=== PATIENT | male | born 1970 | race African-American/Black ===

== ENCOUNTER 2016-09-04 08:29 | Emergency (ER) | payer SELFPAY ==
[2016-09-04 09:09] LABS: APPEARANCE,URINE CLEAR; BILIRUBIN,URINE NEGATIVE (NEGATIVE); GLUCOSE, URINE NEGATIVE (NEGATIVE); KETONES,URINE NEGATIVE (NEGATIVE); LEUKOCYTE ESTERASE,URINE NEGATIVE (NEGATIVE); NITRITE,URINE NEGATIVE (NEGATIVE); PROTEIN,URINE NEGATIVE (NEGATIVE); URINE SPECIFIC GRAVITY 1.028; UROBILINOGEN,URINE NEGATIVE mg/dL (<2.0)
--- NOTE | 2016-09-04 11:13 | ER Document Report ---
ED General - General Chief Complaint: Urinary Frequency Stated Complaint: BACK PAIN Mode of Arrival: Ambulatory Information source: Patient Notes: 46 yr old male with hx of kidney infection kidney stone presents with complaints of 2 wek duration of flank bilateral pain and increased urination. pt denies any fevers or chills, denies any blood in urine, or burning on urination . pt admits back feels better when he stretches TRAVEL OUTSIDE OF THE [place] IN LAST 30 DAYS: No - HPI Onset: Other - 2 week duration Onset/Duration: Persistent Quality of pain: Cramping Severity: Mild Pain Level: 1 Associated symptoms: Other Exacerbated by: Denies Relieved by: Denies Similar symptoms previously: Yes Recently seen / treated by doctor: Yes - Related Data Allergies/Adverse Reactions: No Known Allergies Allergy (Verified 09/04/16 08:32) Past Medical History - Social History Smoking Status: Never Smoker Cigarette use (# per day): No Chew tobacco use (# tins/day): No Smoking Education Provided: No Frequency of alcohol use: None Drug Abuse: None Family History: None Patient has suicidal ideation: No Patient has homicidal ideation: No Renal/ Medical History: Reports: Hx Kidney Stones. Denies: Hx Peritoneal Dialysis GI Medical History: Reports: Hx Gastroesophageal Reflux Disease - Immunizations Hx Diphtheria, Pertussis, Tetanus Vaccination: Yes Review of Systems - Review of Systems Notes: REVIEW OF SYSTEMS: CONSTITUTIONAL : Denies fever, chills, or sweats. Denies recent illness. EENT: Denies eye, ear, throat, or mouth pain or symptoms. Denies nasal or sinus congestion or discharge. Denies throat, tongue, or mouth swelling or difficulty swallowing. CARDIOVASCULAR: Denies chest pain. Denies palpitations or racing or irregular heart beat. Denies ankle edema. RESPIRATORY: Denies cough, cold, or chest congestion. Denies shortness of breath, difficulty breathing, or wheezing. GASTROINTESTINAL: Denies abdominal pain or distention. Denies nausea, vomiting , or diarrhea. Denies blood in vomitus, stools, or per rectum. Denies black, tarry stools. Denies constipation. GENITOURINARY: Admits to increased urination MUSCULOSKELETAL: Admits to bilateral flank pain SKIN: Denies rash, lesions or sores. HEMATOLOGIC : Denies easy bruising or bleeding. LYMPHATIC: Denies swollen, enlarged glands. NEUROLOGICAL: Denies confusion or altered mental status. Denies passing out or loss of consciousness. Denies dizziness or lightheadedness. Denies headache. Denies weakness or paralysis or loss of use of either side. Denies problems with gait or speech. Denies sensory loss, numbness, or tingling. Denies seizures. PSYCHIATRIC: Denies anxiety or stress. Denies depression, suicidal ideation, or homicidal ideation. ALL OTHER SYSTEMS REVIEWED AND NEGATIVE. Dictation was performed using [employer] voice recognition software PHYSICAL EXAMINATION: GENERAL: Well-appearing, well-nourished and in no acute distress. HEAD: Atraumatic, normocephalic. EYES: Pupils equal round and reactive to light, extraocular movements intact, sclera anicteric, conjunctiva are normal. ENT: Nares patent, oropharynx clear without exudates. Moist mucous membranes. NECK: Normal range of motion, supple without lymphadenopathy LUNGS: Breath sounds clear to auscultation bilaterally and equal. No wheezes rales or rhonchi. HEART: Regular rate and rhythm without murmurs ABDOMEN: Soft, nontender, nondistended abdomen. No guarding, no rebound. No masses appreciated. Musculoskeletal: Normal range of motion, no pitting or edema. No cyanosis. NEUROLOGICAL: Cranial nerves grossly intact. Normal speech, normal gait. Normal sensory, motor exams PSYCH: Normal mood, normal affect. SKIN: Warm, Dry, normal turgor, no rashes or lesions noted. Physical Exam - Vital signs Vitals: Temp Pulse Resp BP Pulse Ox 97.6 F 48 L 20 126/85 H 100 09/04/16 08:32 09/04/16 08:32 09/04/16 08:32 09/04/16 08:32 09/04/16 08:32 Course - Re-evaluation Re-evalutation: 09/04/16 11:[address] noted no acute abnormality, I'm unsure the patient's increased urinary cause, his glucose was within normal limits. I will have the patient follow-up with urology. After performing a Medical Screening Examination, I estimate there is LOW risk for ACUTE APPENDICITIS, BOWEL OBSTRUCTION, ACUTE CHOLECYSTITIS, PERFORATED DIVERTICULITIS, INCARCERATED HERNIA, PANCREATITIS, or PERFORATED ULCER, thus I consider the discharge disposition reasonable. Also, there is no evidence or peritonitis, sepsis, or toxicity. I have reevaluated this patient multiple times and no significant life threatening changes are noted. The patient and I have discussed the diagnosis and risks, and we agree with discharging home with close follow-up with the understanding that symptoms and presentations can change. We also discussed returning to the Emergency Department immediately if new or worsening symptoms occur. We have discussed the symptoms which are most concerning (e.g., bloody stool, fever, changing or worsening pain, intractable vomiting - standard verbal up date) that necessitate immediate return. - Vital Signs Vital signs: Temp Pulse Resp BP Pulse Ox 97.6 F 46 L 20 126/85 H 100 09/04/16 08:35 09/04/16 08:35 09/04/16 08:35 09/04/16 08:35 09/04/16 08:35 - Diagnostic Test Radiology reviewed: Image reviewed, Reports reviewed Discharge - Discharge Clinical Impression: Increased urinary frequency Back pain Qualifiers: Back pain location: low back pain Chronicity: acute Back pain laterality: bilateral Sciatica presence: without sciatica Qualified Code(s): M54.5 - Low back pain Condition: Stable Disposition: HOME, SELF-CARE Instructions: Flank Pain ([facility]) Prescriptions: Naproxen 500 mg PO BID #20 tablet Referrals: LAURA STONE MD [Primary Care Provider] - Follow up in 3-5 days BALWINDER WALKER MD [ACTIVE STAFF] - Follow up in 3-5 days
[2016-09-04 11:27] VITALS: BP 122/81
== END 2016-09-04 11:26 | disposition home or self-care (01) ==
LOC: ER 08:29
DX: R35.0 Frequency of micturition (principal); M54.5 Low back pain; R10.9 Unspecified abdominal pain; M54.9 Dorsalgia, unspecified
CPT/HCPCS: 76380; 81001; 82962; 87086; 99284

== ENCOUNTER 2016-10-10 21:09 | Emergency (ER) | payer SELFPAY ==
[2016-10-10] MEDS ORDERED: ASPIRIN 81 MG TABLET, CHEWABLE PO ONE (22:24)
[2016-10-10 22:43] LABS: ABSOLUTE BASOPHILS # (AUTO) 0.1 10^3/uL (0.0-0.2); ABSOLUTE EOSINOPHILS # (AUTO) 0.1 10^3/uL (0.0-0.6); ABSOLUTE LYMPHOCYTES (AUTO) 2.2 10^3/uL (0.5-4.7); ABSOLUTE MONOCYTES (AUTO) 0.6 10^3/uL (0.1-1.4); ABSOLUTE NEUT (AUTO) 4.5 10^3/uL (1.7-8.2); BASOPHILS % (AUTO) 0.8 % (0-2); HEMATOCRIT 46.1 % (37.9-51.0); HEMOGLOBIN 15.2 g/dL (13.5-17.0); HGB HCT DIFFERENCE -0.5; LYMPHOCYTES % (AUTO) 29.4 % (13-45); MEAN CORPUSCULAR HEMOGLOBIN 29.3 pg (27.0-33.4); MEAN CORPUSCULAR VOLUME 89 fl (80-97); MONOCYTES % (AUTO) 8.5 % (3-13); RED BLOOD COUNT 5.19 10^6/uL (4.35-5.55); RED CELL DISTRIBUTION WIDTH 13.8 % (11.5-14.0); SEGMENTED NEUTROPHILS % (AUTO) 60.3 % (42-78); WHITE BLOOD COUNT 7.5 10^3/uL (4.0-10.5)
[2016-10-10 22:56] LABS: ALANINE AMINOTRANSFERASE 26 U/L (21-72); ALBUMIN 4.2 g/dL (3.5-5.0); ALKALINE PHOSPHATASE 55 U/L (38-126); ANION GAP 12 (5-19); ASPARTATE AMINO TRANSFERASE 21 U/L (17-59); BILIRUBIN,DIRECT 0.3 mg/dL (0.0-0.4); BILIRUBIN,TOTAL 0.6 mg/dL (0.2-1.3); BLOOD UREA NITROGEN 15 mg/dL (7-20); CALCIUM 9.8 mg/dL (8.4-10.2); CARBON DIOXIDE 25 mmol/L (22-30); CHLORIDE 105 mmol/L (98-107); CREATINE KINASE 268 U/L (55-170); CREATININE RESULT 1.04 mg/dL (0.52-1.25); GLUCOSE 84 mg/dL (75-110); POTASSIUM 4.1 mmol/L (3.6-5.0); TOTAL PROTEIN 7.3 g/dL (6.3-8.2)
[2016-10-10 23:06] LABS: CREATINE KINASE MB 0.93 ng/mL (<4.55); TROPONIN I < 0.012 ng/mL
--- NOTE | 2016-10-10 23:09 | RADIOLOGY REPORT (SQ) ---
EXAM DESCRIPTION: CHEST SINGLE VIEW COMPLETED DATE/TIME: 10/10/2016 10:40 pm REASON FOR STUDY: chest pain COMPARISON: 04/16/2016 EXAM PARAMETERS: NUMBER OF VIEWS: One view. TECHNIQUE: Single frontal radiographic view of the chest acquired. RADIATION DOSE: NA LIMITATIONS: None. FINDINGS: LUNGS AND PLEURA: No acute opacities, masses or pneumothorax. No pleural effusion. MEDIASTINUM AND HILAR STRUCTURES: Stable. HEART AND VASCULAR STRUCTURES: Stable. BONES: No acute findings. HARDWARE: None in the chest. OTHER: No other significant finding. IMPRESSION: NO ACUTE RADIOGRAPHIC FINDING IN THE CHEST. TECHNICAL DOCUMENTATION: JOB ID: [id number]
[2016-10-11] MEDS ORDERED: METOCLOPRAMIDE HCL ORAL SOLN 10 MG/10 ML UDCUP PO ONE (00:37)
[2016-10-11] MEDS ORDERED: FAMOTIDINE 20 MG TABLET PO ONE (00:37)
[2016-10-11] MEDS ORDERED: LIDOCAINE 2% VISCOUS SOLN 20 ML UDCUP PO ONE (00:37)
[2016-10-11] MEDS ORDERED: MAG HYDROX/AL HYDROX/SIMETH SUSP 30 ML UDCUP PO ONE (00:37)
--- NOTE | 2016-10-11 01:17 | ER Document Report ---
ED General - General Chief Complaint: Chest Pain Stated Complaint: CHEST PAIN Time Seen by Provider: 10/11/16 00:03 Notes: Patient is a 46-year-old male without past medical history who presents with an episode of chest pain occurring approximately 4 hours prior to arrival. Patient states that he has been having worsening reflux symptoms over the last 2 days. States that he has had significant dietary indiscretions over the last 48 hours and believe this may be contributing to his symptoms. States that tonight he had an episode in which he developed mild epigastric discomfort and felt a burning, cramping sensation in his left chest. States he also some tingling in his left arm which he has had in the past with severe reflux. However he states that he decided to err on the side of caution come to the emergency department to be sure that he was not having a heart attack. He denies any associated nausea, vomiting, diaphoresis or shortness of breath. No history of DVT or pulmonary embolus. He denies any pain at time of my assessment. Nothing is been noted to improve or worsen his symptoms. He has no prior cardiac history. TRAVEL OUTSIDE OF THE [place] IN LAST 30 DAYS: No - Related Data Allergies/Adverse Reactions: No Known Allergies Allergy (Verified 09/04/16 08:32) Past Medical History - General Information source: Patient - Social History Smoking Status: Never Smoker Frequency of alcohol use: None Drug Abuse: None Lives with: Spouse/Significant other Family History: Reviewed & Not Pertinent Patient has suicidal ideation: No Patient has homicidal ideation: No Renal/ Medical History: Reports: Hx Kidney Stones. Denies: Hx Peritoneal Dialysis GI Medical History: Reports: Hx Gastroesophageal Reflux Disease - Immunizations Hx Diphtheria, Pertussis, Tetanus Vaccination: Yes Review of Systems - Review of Systems Notes: Constitutional: Negative for fever. HENT: Negative for sore throat. Eyes: Negative for visual changes. Cardiovascular: Positive for chest pain. Respiratory: Negative for shortness of breath. Gastrointestinal: Positive for epigastric discomfort Genitourinary: Negative for dysuria. Musculoskeletal: Negative for back pain. Skin: Negative for rash. Neurological: Negative for headaches, weakness or numbness. 10 point ROS negative except as marked above and in HPI. Physical Exam - Vital signs Vitals: Temp Pulse Resp BP Pulse Ox 98.1 F 53 L 17 126/88 H 100 10/10/16 22:20 10/10/16 22:20 10/10/16 22:20 10/10/16 22:20 10/10/16 22:20 Interpretation: Bradycardic Notes: PHYSICAL EXAMINATION: GENERAL: Well-appearing, well-nourished and in no acute distress. HEAD: Atraumatic, normocephalic. EYES: Pupils equal round and reactive to light, extraocular movements intact, sclera anicteric, conjunctiva are normal. ENT: nares patent, oropharynx clear without exudates. Moist mucous membranes. NECK: Normal range of motion, supple without lymphadenopathy LUNGS: Breath sounds clear to auscultation bilaterally and equal. No wheezes rales or rhonchi. HEART: Regular rate and rhythm without murmurs ABDOMEN: Soft, mild epigastric discomfort, normoactive bowel sounds. No guarding, no rebound. No masses appreciated. EXTREMITIES: Normal range of motion, no pitting or edema. No cyanosis. NEUROLOGICAL: No focal neurological deficits. Moves all extremities spontaneously and on command. PSYCH: Normal mood, normal affect. SKIN: Warm, Dry, normal turgor, no rashes or lesions noted. Course - Re-evaluation Re-evalutation: 10/11/16 01:12 Presentation of chest pain in an otherwise well appearing patient. Low clinical suspicion for ACS given clinical history, exam, EKG without ST elevations or depressions, and negative initial troponin. HEART score less than or equal to 3. PE also seems unlikely given clinical history, absence of tachycardia or dyspnea. Patient is PERC criteria negative. CXR without evidence of pneumothorax or pneumonia. No widened mediastinum. Aortic dissection also seems unlikely given history, symmetric pulses, CXR, and vitals. HEART Score: History:0 EC Age:1 Risk Factors:0 Troponin:0 Total: 1 10/11/16 01:54 Second troponin remains negative. Patient states his epigastric discomfort is now improved after a GI cocktail. Final assessment: Chest pain in a patient without evidence of cardiac or other serious etiology on workup today. I discussed with patient that, based on their age, risk factors and emergency department testing today, the likelihood that their symptoms are related to a heart attack is very low (estimated risk of heart attack or over the next 30 days of less than 1%). The patient demonstrates decision making capacity and has verbalized an understanding of these risks to me. Based on this, the patient has chosen to follow-up as an outpatient. Usual chest pain return precautions reviewed. The patient states understanding and agreement with this plan. - Vital Signs Vital signs: Temp Pulse Resp BP Pulse Ox 98.1 F 53 L 21 H 102/72 100 10/10/16 22:20 10/10/16 22:20 10/11/16 01:00 10/11/16 01:01 10/11/16 01:01 - Laboratory Result Diagrams: 10/10/16 22:31 10/10/16 22:31 Laboratory results interpreted by me: 10/10/16 22:31 Creatine Kinase 268 H - Diagnostic Test Radiology reviewed: Image reviewed, Reports reviewed Radiology results interpreted by me: 10/11/16 01:13 Chest x-ray: No acute pneumothorax or infiltrate - EKG Interpretation by Me Additional EKG results interpreted by me: 10/11/16 01:13 Normal sinus rhythm. Rate 71. No ST elevations or depressions. QTC is 426. Discharge - Discharge Clinical Impression: Abdominal discomfort, epigastric Chest pain Qualifiers: Chest pain type: unspecified Qualified Code(s): R07.9 - Chest pain, unspecified Condition: Good Disposition: HOME, SELF-CARE Additional Instructions: You were seen today for chest pain. The exact cause of your pain is unclear. However, based on your cardiac enzyme testing, chest x-ray, and EKG it does not appear that it is from an immediately life-threatening cause at this time. Although your testing here is normal is critical that you follow-up with your primary care physician for continued evaluation of this chest pain. Begin taking famotidine 20 mg twice daily and avoid foods that may trigger symptoms. Please return to emergency department immediately if you have worsening of your chest pain, shortness of breath, vomiting, become unable to exert yourself due to pain or difficulty breathing, you pass out, or have any pain that radiates into your arms, jaw, or back. Please also return if you have any additional symptoms that are concerning to you.
[2016-10-11 02:06] VITALS: BP 118/75
--- NOTE | 2016-10-11 08:23 | EKG REPORT ---
SEVERITY:- NORMAL ECG - SINUS RHYTHM : Confirmed by: Isai Leal MD 11-Oct-2016 08:22:51
== END 2016-10-11 02:06 | disposition home or self-care (01) ==
LOC: ER 21:09
DX: R07.9 Chest pain, unspecified (principal); R19.8 Other specified symptoms and signs involving the digestive system and abdomen; R20.2 Paresthesia of skin; R00.1 Bradycardia, unspecified; Z87.19 Personal history of other diseases of the digestive system; Z87.442 Personal history of urinary calculi
CPT/HCPCS: 93005; 99285; 36415; 82553; 82550; 85025; 80053; 84484; 71010; 93010; J3490

== ENCOUNTER 2017-09-30 20:23 | Emergency (ER) | payer SELFPAY ==
[2017-09-30 20:31] VITALS: BP 119/78
--- NOTE | 2017-09-30 22:28 | ER Document Report ---
ED Skin Rash/Insect Bite/Abscs - General Chief Complaint: Insect Bite Stated Complaint: POSSIBLE INSECT BITE Time Seen by Provider: 09/30/17 22:16 Mode of Arrival: Ambulatory Information source: Patient Notes: 47-year-old male presents to ED for complaint of insect bites to the left abdomen left thigh and left calf since Friday and Friday. Patient states he has had pain in these areas. She states he was on his way from [place] to [place] and he was standing a motel when this happened. He has no fever no inflammation just bug bites in these 3 areas. He is alert oriented respirations even and unlabored able to walk with a even steady gait. TRAVEL OUTSIDE OF THE [place] IN LAST 30 DAYS: No - HPI Patient complains to provider of: Insect sting Onset: Other - Friday and Friday Onset/Duration: Gradual Quality of pain: Burning Severity: Mild Pain Level: 2 Skin Character: Other - 3 small insect bites with no cellulitis Quality of rash: Itchy, Painful Identify cause: Yes Exacerbated by: Denies Relieved by: Denies Similar symptoms previously: Yes Recently seen / treated by doctor: No - Related Data Allergies/Adverse Reactions: No Known Allergies Allergy (Verified 09/04/16 08:32) Past Medical History - General Information source: Patient - Social History Smoking Status: Never Smoker Cigarette use (# per day): No Chew tobacco use (# tins/day): No Smoking Education Provided: No Frequency of alcohol use: None Drug Abuse: None Lives with: Alone Family History: Reviewed & Not Pertinent Patient has suicidal ideation: No Patient has homicidal ideation: No - Past Medical History Cardiac Medical History: Reports: None Pulmonary Medical History: Reports: None EENT Medical History: Reports: None Neurological Medical History: Reports: None Endocrine Medical History: Reports: None Renal/ Medical History: Reports: Hx Kidney Stones Malignancy Medical History: Reports None GI Medical History: Reports: Hx Gastroesophageal Reflux Disease Musculoskeltal Medical History: Reports None Skin Medical History: Reports None Psychiatric Medical History: Reports: None Traumatic Medical History: Reports: None Infectious Medical History: Reports: None Surgical Hx: Negative - Immunizations Immunizations up to date: Yes Hx Diphtheria, Pertussis, Tetanus Vaccination: Yes Review of Systems - Review of Systems Constitutional: No symptoms reported EENT: No symptoms reported Cardiovascular: No symptoms reported Respiratory: No symptoms reported Gastrointestinal: No symptoms reported Genitourinary: No symptoms reported Male Genitourinary: No symptoms reported Musculoskeletal: No symptoms reported Skin: Other - Small noninflamed insect bite to the left abdomen left thigh and left calf no redness no cellulitis Hematologic/Lymphatic: No symptoms reported Neurological/Psychological: No symptoms reported Physical Exam - Vital signs Vitals: Temp Pulse Resp BP Pulse Ox 97.6 F 48 L 16 119/78 98 09/30/17 20:30 09/30/17 20:30 09/30/17 20:30 09/30/17 20:30 09/30/17 20:30 Interpretation: Normal - General General appearance: Appears well, Alert - HEENT Head: Normocephalic, Atraumatic Eyes: Normal Pupils: PERRL - Respiratory Respiratory status: No respiratory distress Chest status: Nontender Breath sounds: Normal Chest palpation: Normal - Cardiovascular Rhythm: Regular Heart sounds: Normal auscultation Murmur: No - Abdominal Inspection: Normal Distension: No distension Bowel sounds: Normal Tenderness: Nontender Organomegaly: No organomegaly - Back Back: Normal, Nontender - Extremities General upper extremity: Normal inspection, Nontender, Normal color, Normal ROM , Normal temperature General lower extremity: Normal inspection, Nontender, Normal color, Normal ROM , Normal temperature, Normal weight bearing. No: Eligio's sign - Neurological Neuro grossly intact: Yes Cognition: Normal Orientation: AAOx4 [place] Coma Scale Eye Opening: Spontaneous Govind Coma Scale Verbal: Oriented Govind Coma Scale Motor: Obeys Commands Govind Coma Scale Total: 15 Speech: Normal Motor strength normal: LUE, RUE, LLE, RLE Sensory: Normal - Psychological Associated symptoms: Normal affect, Normal mood - Skin Skin Temperature: Warm Skin Moisture: Dry Skin Color: Normal Location of irregularity: Other - 3 small insect bites to the left abdomen left thigh and left calf. No cellulitis no inflammation Character of irregularity: negative: Erythematous Irregularity with: negative: Swelling, Tenderness Course - Re-evaluation Re-evalutation: 10/01/17 00:55 This patient was given instructions on care of been insect bite. There is no signs of infection no signs of inflammation no swelling. Patient was opted to return to the ED if he develops any redness infection or inflammation or fevers. Patient instructed not to scratch these insect bites but to clean well with soap and water and to apply ice if it itched but do not scratch the areas. - Vital Signs Vital signs: Temp Pulse Resp BP Pulse Ox 97.6 F 48 L 16 119/78 98 09/30/17 20:30 09/30/17 20:30 09/30/17 20:30 09/30/17 20:30 09/30/17 20:30 Discharge - Discharge Clinical Impression: Insect bite Qualifiers: Encounter type: initial encounter Qualified Code(s): W57.XXXA - Bitten or stung by nonvenomous insect and other nonvenomous arthropods, initial encounter Condition: Stable Disposition: HOME, SELF-CARE Additional Instructions: Insect Bites You have been bitten by an insect. These bites can cause two types of swelling: an initial swelling due to insect saliva or injected poison, and a late reaction due to your body's allergic reaction. This initial local reaction may be uncomfortable but is not dangerous. Often there's an itchy "hive" at the bite location. This is treated with antihistamines, cold compresses, and resting the affected body part. The later reaction often develops about the second day. The entire area becomes very swollen, red, itchy, and tender. This is an allergic reaction. Your body is attacking the leftover insect saliva or venom. This type of allergy is unpleasant, but not dangerous. We treat this swelling with cortisone -type medicine. Sometimes we use antibiotics if we're worried about infection. Antihistamines help with the itch. If you develop a fever, chills, a red streak, or swollen glands in the area of the bite, infection may be starting. Return at once. Acetaminophen Acetaminophen may be taken for pain relief or fever control. It's much safer than aspirin, offering a wider range of "safe" dosages. It is safe during . Some brand names are Tylenol, Panadol, Datril, Anacin 3, Tempra, and Liquiprin. Acetaminophen can be repeated every four hours. The following are maximum recommended dosages: WEIGHT Dose Drops Elixir Chewable( 80mg) (LBS.) drprs=droppers tsp=teaspoon 6 40 mg .4 ml (1/2) 6-11 80 mg .8 ml (full) 1/2 tsp 1 tab 12-16 120 mg 1 1/2 drprs 3/4 tsp 1 1/2 tabs 17-23 160 mg 2 drprs 1 tsp 2 tabs 24-30 240 mg 3 drprs 1 1/2 tsp 3 tabs 30-35 320 mg 2 tsp 4 tabs 36-41 360 mg 2 1/4 tsp 4 1 /2 tabs 42-47 400 mg 2 1/2 tsp 5 tabs 48-53 480 mg 3 tsp 6 tabs 54-59 520 mg 3 1/4 tsp 6 1 /2 tabs 60-64 560 mg 3 1/2 tsp 7 tabs 65-70 600 mg 3 3/4 tsp 7 1 /2 tabs 71-76 640 mg 4 tsp 8 tabs 77-82 720 mg 4 1/2 tsp 9 tabs 83-88 800 mg 5 tsp 10 tabs >89 pounds or adults 650 mg to 900 mg Acetaminophen can be repeated every four hours. Maximum daily dose not to exceed 4000 mg. These maximum recommended dosages are slightly higher than the dosages written on the product container, but these dosages are very safe and well below the toxic dosage for acetaminophen. Ibuprofen Ibuprofen is an excellent, safe drug for pain control. In addition, it has potent antiinflammatory effects which are beneficial, especially in the treatment of injuries, arthritis, or tendonitis. It's best to take ibuprofen with food. Persons with ulcer disease or allergy to aspirin should notify their physician of this before taking ibuprofen. Take the medication exactly as prescribed. Don't take additional doses unless instructed to do so by your doctor. If you develop wheezing, shortness of breath, hives, faintness, stomach pain, vomiting, or dark black stools, return for re-evaluation at once. Pain the areas with some soap and water dab with alcohol and take Benadryl as needed for itching. Please do not scratch the areas as this can cause infection. The sites are not infected at this time. FOLLOW-UP CARE: If you have been referred to a physician for follow-up care, call the physician s office for an appointment as you were instructed or within the next two days. If you experience worsening or a significant change in your symptoms, notify the physician immediately or return to the Emergency Department at any time for re-evaluation. Referrals: LAURA STONE MD [Primary Care Provider] - Follow up as needed
== END 2017-09-30 22:39 | disposition home or self-care (01) ==
LOC: ER 20:23
DX: S30.861A Insect bite (nonvenomous) of abdominal wall, initial encounter (principal); S70.362A Insect bite (nonvenomous), left thigh, initial encounter; S80.862A Insect bite (nonvenomous), left lower leg, initial encounter; W57.XXXA Bitten or stung by nonvenomous insect and other nonvenomous arthropods, initial encounter; Z87.442 Personal history of urinary calculi
CPT/HCPCS: 99281

== ENCOUNTER 2017-12-16 21:14 | Observation (INO) | payer SELFPAY ==
--- NOTE | 2017-12-16 22:17 | EKG REPORT ---
SEVERITY:- NORMAL ECG - SINUS RHYTHM : Confirmed by: Carmen Healy 16-Dec-2017 22:16:37
[2017-12-16] MEDS ORDERED: ASPIRIN 81 MG TABLET, CHEWABLE PO ONE (22:42)
--- NOTE | 2017-12-16 22:44 | ER Document Report ---
ED Cardiac - General Chief Complaint: Chest Pain Stated Complaint: CHEST PAIN Time Seen by Provider: 12/16/17 22:35 Notes: Patient is a 47-year-old male who comes emergency room for chief complaint of chest pain. He states that at 1:30 PM he had an episode that lasted for a few minutes where he broke out into a sweat, he felt a little bit lightheaded, he felt discomfort in the center of his chest, and he felt a little bit short of breath. He states this lasted for several minutes and then resolved. He states it happened again but not as bad later in the evening. He states yesterday he had the sensation of a "bubble" in the chest and he took Zantac a couple times. He took Zantac again today without any change. He denies smoking , alcohol, recreational drugs, he denies any diagnosed medical history other than bradycardia, he denies any first-degree family members with history of [place]. TRAVEL OUTSIDE OF THE [place] IN LAST 30 DAYS: No - Related Data Allergies/Adverse Reactions: No Known Allergies Allergy (Verified 09/04/16 08:32) Past Medical History - General Information source: Patient - Social History Smoking Status: Never Smoker Frequency of alcohol use: None Drug Abuse: None Lives with: Alone Family History: Reviewed & Not Pertinent Renal/ Medical History: Reports: Hx Kidney Stones. Denies: Hx Peritoneal Dialysis GI Medical History: Reports: Hx Gastroesophageal Reflux Disease Surgical Hx: Negative - Immunizations Immunizations up to date: Yes Hx Diphtheria, Pertussis, Tetanus Vaccination: Yes Review of Systems - Review of Systems Constitutional: No symptoms reported EENT: No symptoms reported Cardiovascular: See HPI Respiratory: No symptoms reported Gastrointestinal: No symptoms reported Genitourinary: No symptoms reported Male Genitourinary: No symptoms reported Musculoskeletal: No symptoms reported Skin: No symptoms reported Hematologic/Lymphatic: No symptoms reported Neurological/Psychological: No symptoms reported Physical Exam - Vital signs Vitals: Temp Pulse Resp BP Pulse Ox 98.1 F 44 L 16 115/79 100 12/16/17 22:22 12/16/17 22:22 12/16/17 22:22 12/16/17 22:22 12/16/17 22:22 - Notes Notes: GENERAL: Alert, interacts well. No acute distress. HEAD: Normocephalic, atraumatic. EYES: Pupils equal, round, and reactive to light. Extraocular movements intact. ENT: Oral mucosa moist, tongue midline. NECK: Full range of motion. Supple. Trachea midline. LUNGS: Clear to auscultation bilaterally, no wheezes, rales, or rhonchi. No respiratory distress. HEART: Bradycardia with normal rhythm. No murmur. ABDOMEN: Soft, non-tender. Non-distended. Bowel sounds present in all 4 quadrants. EXTREMITIES: Moves all 4 extremities spontaneously. No edema, normal radial and dorsalis pedis pulses bilaterally. No cyanosis. BACK: no cervical, thoracic, lumbar midline tenderness. No saddle anesthesia, normal distal neurovascular exam. NEUROLOGICAL: Alert and oriented x3. Normal speech. [cranial nerves II through XII grossly intact]. PSYCH: Normal affect, normal mood. SKIN: Warm, dry, normal turgor. No rashes or lesions noted. Course - Re-evaluation Re-evalutation: Patient chest pain-free on my evaluation. He does not take any medications, does not smoke, denies recreational drugs. He is bradycardic but he tells me he has had this diagnosis before. EKG shows sinus bradycardia with no T-wave inversions or ST segment changes in consecutive leads. CBC, chemistry unremarkable, troponin initially is negative. Chest x-ray unremarkable. Discussed with patient. He has been seen here for chest pain several times in the past but has never had a follow-up stress test performed. His symptoms are actually very concerning including diaphoresis, nausea, and pressure in the chest which resolved, symptoms started while he was working. He has a low heart score but because of his repeated follow-up failure, concerning symptoms, I discussed with patient different options, preference is to stay and have full cardiac workup performed. Will discuss with his provider. 12/17/17 00:[address] Loaiza. Patient will be admitted to telemetry observation with plans for a stress test. Patient states understanding and agreement with this plan. - Vital Signs Vital signs: Temp Pulse Resp BP Pulse Ox 97.8 F 47 L 20 114/69 100 12/17/17 02:45 12/17/17 02:45 12/17/17 02:45 12/17/17 02:45 12/17/17 02:45 - Laboratory Result Diagrams: 12/16/17 23:00 12/16/17 23:00 Laboratory results interpreted by me: 12/16/17 23:00 RDW 14.2 H Discharge - Discharge Clinical Impression: Bradycardia Chest pain Qualifiers: Chest pain type: unspecified Qualified Code(s): R07.9 - Chest pain, unspecified Condition: Stable Disposition: ADMITTED OBSERVATION Admitting Provider: [facility] Admitted: Telemetry
--- NOTE | 2017-12-16 23:15 | RADIOLOGY REPORT (SQ) ---
EXAM DESCRIPTION: XR CHEST 1 VIEW COMPLETED DATE/TME: 12/16/2017 22:42 CLINICAL HISTORY: 47 years, Male, chest pain COMPARISON: 10/10/2016 NUMBER OF VIEWS: One TECHNIQUE: Single AP view of the chest was obtained portably. LIMITATIONS: None. FINDINGS: Cardiac mediastinal silhouette within normal limits of size stable in comparison to the previous examination. Slightly tortuous thoracic aorta. Low lung volumes grossly clear without discrete focal opacity, pleural effusion or pneumothorax. IMPRESSION: No acute cardiopulmonary abnormalities. 2010 [employer]- All Rights Reserved
[2017-12-16 23:30] LABS: ABSOLUTE EOSINOPHILS # (AUTO) 0.1 10^3/uL (0.0-0.6); ABSOLUTE MONOCYTES (AUTO) 0.6 10^3/uL (0.1-1.4); ABSOLUTE NEUT (AUTO) 3.4 10^3/uL (1.7-8.2); BASOPHILS % (AUTO) 0.5 % (0-2); EOSINOPHILS % (AUTO) 1.2 % (0-6); HEMATOCRIT 43.3 % (37.9-51.0); HEMOGLOBIN 14.5 g/dL (13.5-17.0); LYMPHOCYTES % (AUTO) 32.5 % (13-45); MEAN CORPUSCULAR HEMOGLOBIN 29.9 pg (27.0-33.4); MEAN CORPUSCULAR HGB CONC 33.4 g/dL (32.0-36.0); MEAN CORPUSCULAR VOLUME 89 fl (80-97); MONOCYTES % (AUTO) 10.1 % (3-13); PLATELET COUNT 270 10^3/uL (150-450); RED BLOOD COUNT 4.85 10^6/uL (4.35-5.55); RED CELL DISTRIBUTION WIDTH 14.2 % (11.5-14.0); SEGMENTED NEUTROPHILS % (AUTO) 55.7 % (42-78); TOTAL CELLS COUNTED % (AUTO) 100 %; WHITE BLOOD COUNT 6.1 10^3/uL (4.0-10.5)
[2017-12-16 23:41] LABS: ALANINE AMINOTRANSFERASE 24 U/L (21-72); ALBUMIN 4.1 g/dL (3.5-5.0); ALKALINE PHOSPHATASE 48 U/L (38-126); ANION GAP 11 (5-19); ASPARTATE AMINO TRANSFERASE 17 U/L (17-59); BILIRUBIN,DIRECT 0.2 mg/dL (0.0-0.4); BILIRUBIN,TOTAL 0.6 mg/dL (0.2-1.3); BLOOD UREA NITROGEN 13 mg/dL (7-20); CALCIUM 9.3 mg/dL (8.4-10.2); CARBON DIOXIDE 26 mmol/L (22-30); CHLORIDE 104 mmol/L (98-107); CREATINE KINASE 144 U/L (55-170); GLUCOSE 86 mg/dL (75-110); POTASSIUM 4.3 mmol/L (3.6-5.0); TOTAL PROTEIN 7.2 g/dL (6.3-8.2)
[2017-12-16 23:52] LABS: CREATINE KINASE MB 0.55 ng/mL (<4.55)
[2017-12-16 23:55] LABS: TROPONIN I < 0.012 ng/mL
[2017-12-17 06:24] LABS: CREATINE KINASE MB 0.41 ng/mL (<4.55)
[2017-12-17 06:35] LABS: TROPONIN I < 0.012 ng/mL
[2017-12-17] MEDS ORDERED: LIDOCAINE 2% VISCOUS SOLN 20 ML UDCUP PO ONE (11:00)
[2017-12-17] MEDS ORDERED: MAG HYDROX/AL HYDROX/SIMETH SUSP 30 ML UDCUP PO ONE (11:00)
[2017-12-17] MEDS ORDERED: METOCLOPRAMIDE HCL ORAL SOLN 10 MG/10 ML UDCUP PO ONE (11:00)
[2017-12-17] MEDS ORDERED: LANSOPRAZOLE 30 MG TAB.RAP.DR PO ONE (11:30)
[2017-12-17 11:43] LABS: CREATINE KINASE MB 0.38 ng/mL (<4.55)
[2017-12-17 11:49] LABS: TROPONIN I < 0.012 ng/mL
[2017-12-17] MEDS: ASPIRIN 81 MG TABLET, ENT COATED PO SCH (11:57)
[2017-12-17] MEDS ORDERED: REGADENOSON INJ 0.4 MG/5 ML DISP.SYRIN IV ONE (12:30)
--- NOTE | 2017-12-17 17:46 | PDOC H&P ---
History of Present Illness Admission Date/PCP: 12/17/17 00:36 LAURA STONE MD History of Present Illness: J OANN COTO is a 47 year old male, He came to the emergency room for evaluation of chest pain, the chest pain is atypical Past Medical History Cardiac Medical History: Reports: Hypertension GI Medical History: Reports: Gastroesophageal Reflux Disease Social History Lives with: Alone Smoking Status: Never Smoker Frequency of Alcohol Use: None Hx Recreational Drug Use: No Drugs: None Hx Prescription Drug Abuse: No - Advance Directive Resuscitation Status: Full Code Family History Family History: Reviewed & Not Pertinent Parental Family History Reviewed: Yes Children Family History Reviewed: Yes Sibling(s) Family History Reviewed.: Yes Medication/Allergy Home Medications: Ranitidine HCl [Zantac 150 mg Tablet] 150 mg PO BID PRN 09/21/12 Allergies/Adverse Reactions: No Known Allergies Allergy (Verified 09/04/16 08:32) Review of Systems Constitutional: ABSENT: chills, fever(s), headache(s), weight gain, weight loss Eyes: ABSENT: visual disturbances Ears: ABSENT: hearing changes Cardiovascular: PRESENT: chest pain. ABSENT: dyspnea on exertion, edema, orthropnea, palpitations Respiratory: ABSENT: cough, hemoptysis Gastrointestinal: ABSENT: abdominal pain, constipation, diarrhea, hematemesis, hematochezia, nausea, vomiting Genitourinary: ABSENT: dysuria, hematuria Musculoskeletal: ABSENT: joint swelling Integumentary: ABSENT: rash, wounds Neurological: ABSENT: abnormal gait, abnormal speech, confusion, dizziness, focal weakness, syncope Psychiatric: ABSENT: anxiety, depression, homidical ideation, suicidal ideation Endocrine: ABSENT: cold intolerance, heat intolerance, menstrual abnormalities, polydipsia, polyuria Hematologic/Lymphatic: ABSENT: easy bleeding, easy bruising, lymphadenopathy Physical Exam Vital Signs: Temp Pulse Resp BP Pulse Ox 98.6 F 52 L 16 103/62 100 12/17/17 14:57 12/17/17 15:00 12/17/17 14:57 12/17/17 14:57 12/17/17 14:57 Intake & Output 12/16/17 12/17/17 12/18/17 06:59 06:59 06:59 Intake Total 815 Balance 815 Weight 83.3 kg General appearance: PRESENT: no acute distress, well-developed, well-nourished Head exam: PRESENT: atraumatic, normocephalic Eye exam: PRESENT: conjunctiva pink, EOMI, PERRLA Ear exam: PRESENT: normal external ear exam Mouth exam: PRESENT: moist, tongue midline Neck exam: PRESENT: full ROM Respiratory exam: PRESENT: clear to auscultation sowmya Cardiovascular exam: PRESENT: RRR, +S1, +S2 Pulses: PRESENT: normal dorsalis pedis pul, +2 pedal pulses bilateral Vascular exam: PRESENT: normal capillary refill GI/Abdominal exam: PRESENT: normal bowel sounds, soft Rectal exam: PRESENT: deferred Neurological exam: PRESENT: alert, awake, oriented to person, oriented to place , oriented to time, oriented to situation, CN II-XII grossly intact Psychiatric exam: PRESENT: appropriate affect, normal mood Skin exam: PRESENT: dry, intact, warm Results Laboratory Results: 12/17/17 12/17/17 04:59 11:07 CK-MB (CK-2) 0.41 0.38 Troponin I < 0.012 < 0.012 Impressions: Chest X-Ray 12/16/17 22:42 IMPRESSION: No acute cardiopulmonary abnormalities. 2010 [employer]- All Rights Reserved Assessment & Plan - Diagnosis (1) Chest pain Qualifiers: Chest pain type: unspecified Qualified Code(s): R07.9 - Chest pain, unspecified Is this a current diagnosis for this admission?: Yes
[2017-12-17 18:47] LABS: CREATINE KINASE MB 0.29 ng/mL (<4.55); TROPONIN I < 0.012 ng/mL
[2017-12-18] MEDS ORDERED: LANSOPRAZOLE 30 MG TAB.RAP.DR PO SCH (06:00)
[2017-12-18 07:01] LABS: ABSOLUTE EOSINOPHILS # (AUTO) 0.1 10^3/uL (0.0-0.6); ABSOLUTE LYMPHOCYTES (AUTO) 1.4 10^3/uL (0.5-4.7); ABSOLUTE MONOCYTES (AUTO) 0.7 10^3/uL (0.1-1.4); BASOPHILS % (AUTO) 0.5 % (0-2); EOSINOPHILS % (AUTO) 1.3 % (0-6); HEMATOCRIT 45.3 % (37.9-51.0); HEMOGLOBIN 15.3 g/dL (13.5-17.0); LYMPHOCYTES % (AUTO) 26.5 % (13-45); MEAN CORPUSCULAR HGB CONC 33.8 g/dL (32.0-36.0); MEAN CORPUSCULAR VOLUME 89 fl (80-97); MONOCYTES % (AUTO) 13.3 % (3-13); PLATELET COUNT 241 10^3/uL (150-450); RED BLOOD COUNT 5.11 10^6/uL (4.35-5.55); RED CELL DISTRIBUTION WIDTH 13.9 % (11.5-14.0); SEGMENTED NEUTROPHILS % (AUTO) 58.4 % (42-78); TOTAL CELLS COUNTED % (AUTO) 100 %; WHITE BLOOD COUNT 5.1 10^3/uL (4.0-10.5)
[2017-12-18 07:21] LABS: ANION GAP 9 (5-19); BLOOD UREA NITROGEN 11 mg/dL (7-20); CALCIUM 9.2 mg/dL (8.4-10.2); CARBON DIOXIDE 25 mmol/L (22-30); CHLORIDE 105 mmol/L (98-107); CHOLESTEROL 190.12 mg/dL (0-200); GLUCOSE 92 mg/dL (75-110); POTASSIUM 4.3 mmol/L (3.6-5.0); SODIUM 139.3 mmol/L (137-145); TRIGLYCERIDES 79 mg/dL (<150)
[2017-12-18 07:32] LABS: DIRECT LDL 110 mg/dL (<100)
[2017-12-18] MEDS: ASPIRIN 81 MG TABLET, ENT COATED PO SCH (12:08)
--- NOTE | 2017-12-18 17:26 | PDOC DISCHARGE SUMMARY ---
General - Admit/Disc Date/PCP Admission Date/Primary Care Provider: 12/17/17 00:36 LAURA STONE MD Discharge Date: 12/18/17 - Discharge Diagnosis (1) Chest pain Is this a current diagnosis for this admission?: Yes - Additional Information Resuscitation Status: Full Code Discharge Activity: Activity As Tolerated, Balance Activity w/Rest Home Medications: Ranitidine HCl [Zantac 150 mg Tablet] 150 mg PO BID PRN 09/21/12 History of Present Illness History of Present Illness: JO ANN COTO is a 47 year old male, He came to the emergency room for evaluation of chest pain, the chest pain is atypical Hospital Course Hospital Course: Patient was admitted for the management of chest pain, the chest pain is atypical, he rule out for [place]. A Cardiolite Lexiscan stress test was done this was normal Physical Exam Vital Signs: Temp Pulse Resp BP Pulse Ox 98.6 F 59 L 16 114/69 100 12/18/17 16:45 12/18/17 16:45 12/18/17 16:45 12/18/17 16:45 12/18/17 16:45 Intake & Output 12/17/17 12/18/17 12/19/17 06:59 06:59 06:59 Intake Total 1051 677 Balance 1051 677 Weight 83.3 kg 82 kg General appearance: PRESENT: no acute distress, well-developed, well-nourished Head exam: PRESENT: atraumatic, normocephalic Eye exam: PRESENT: conjunctiva pink, EOMI, PERRLA Ear exam: PRESENT: normal external ear exam Mouth exam: PRESENT: moist, tongue midline Neck exam: PRESENT: full ROM Respiratory exam: PRESENT: clear to auscultation sowmya Cardiovascular exam: PRESENT: RRR, +S1, +S2 Pulses: PRESENT: normal dorsalis pedis pul, +2 pedal pulses bilateral Vascular exam: PRESENT: normal capillary refill GI/Abdominal exam: PRESENT: normal bowel sounds, soft Rectal exam: PRESENT: deferred Neurological exam: PRESENT: alert, awake, oriented to person, oriented to place , oriented to time, oriented to situation, CN II-XII grossly intact Psychiatric exam: PRESENT: appropriate affect, normal mood Skin exam: PRESENT: dry, intact, warm Results Laboratory Results: 12/18/17 06:27 12/18/17 06:27 12/18/17 12/18/17 06:27 06:27 WBC 5.1 RBC 5.11 Hgb 15.3 Hct 45.3 MCV 89 MCH 30.0 MCHC 33.8 RDW 13.9 Plt Count 241 Seg Neutrophils % 58.4 Lymphocytes % 26.5 Monocytes % 13.3 H Eosinophils % 1.3 Basophils % 0.5 Absolute Neutrophils 3.0 Absolute Lymphocytes 1.4 Absolute Monocytes 0.7 Absolute Eosinophils 0.1 Absolute Basophils 0.0 Sodium 139.3 Potassium 4.3 Chloride 105 Carbon Dioxide 25 Anion Gap 9 BUN 11 Creatinine 0.87 Est GFR ( Amer) > 60 Est GFR (Non-Af Amer) > 60 Glucose 92 Calcium 9.2 Triglycerides 79 Cholesterol 190.12 LDL Cholesterol Direct 110 H VLDL Cholesterol 16.0 HDL Cholesterol 45 12/17/17 12/17/17 12/17/17 04:59 11:07 18:10 CK-MB (CK-2) 0.41 0.38 0.29 Troponin I < 0.012 < 0.012 < 0.012 Impressions: Chest X-Ray 12/16/17 22:42 IMPRESSION: No acute cardiopulmonary abnormalities. 2010 [employer]- All Rights Reserved Qualifiers - * PATIENT BEING DISCHARGED WITH ANY OF THE FOLLOWING DIAGNOSIS: No
[2017-12-18 17:44] VITALS: BP 118/76
--- NOTE | 2017-12-24 00:11 | DRAGON STRESS TEST REPORT ---
Intravenous Lexiscan Cardiolite stress test using single photon emmision computerized tomography. Date of procedure: 12/18/2017. Ordering Provider: Dr. Loaiza. Patient's status: In Patient. Indication: Chest pain. Coronary risk factors: Age. Resting EKG: Sinus Rhythm. Poor R-wave progression leads V1 to V6. Stress EKG: No changes of ischemia. The patient no chest pain or discomfort, and there were no arrhythmias. Reason for termination: Protocol. Conclusions: Normal EKG and hemodynamic response to IV Lexiscan. Nuclear data: At rest the patient was given 12.44 millicuries of technetium 99m sestamibi injected intravenously. As per protocol rest non gated SPECT images were obtained. Subsequently the patient was given intravenous Lexiscan at a dose of 0.4 mg in 5 mL intravenously, followed by flush with normal saline. Subsequently the stress dose of 36.8 millicuries of technetium 99m sestamibi was injected intravenously. As per protocol stress gated images were obtained. Nuclear interpretation: Review of images showed that all segments of the myocardium had normal perfusion at rest, and normal perfusion post stress with IV Lexiscan. All segments of the myocardium had normal motion, contraction, and thickening by gated study. T. I D. ratio was normal at 0.85. Computer read rest, and stress left ventricular ejection fraction were 52 %, and 54 %, respectively. Visually both the stress and rest ejection fractions were normal, and greater than 55%. Conclusion: 1. There is no scintigraphic evidence of Lexiscan induced myocardial ischemia. 2. There is no scintigraphic evidence of myocardial infarction/scar. Recommendations: Aggressive risk factor modification, and treating the underlying co- morbidities. MTDD
== END 2017-12-18 18:28 | disposition home or self-care (01) ==
LOC: ER 21:14 → EH 12-17 00:36 → 5 12-17 02:04 → 3S 12-17 02:41
PROVIDERS: ADMIT Internal Medicine; ATTEND Internal Medicine
DX: R07.89 Other chest pain (principal); K21.9 Gastro-esophageal reflux disease without esophagitis; R42 Dizziness and giddiness; R61 Generalized hyperhidrosis; R06.02 Shortness of breath; R00.1 Bradycardia, unspecified
CPT/HCPCS: 93005; 99285; 36415 ×3; 82553 ×2; 82550; 85025 ×2; 80048; 80053; 84484 ×2; 80061; 93017; 71045; 78452; 93010; G0378 ×2; A9500; J2785; J3490 ×3; Q9969

== ENCOUNTER 2018-12-09 08:44 | Inpatient (IN) | payer SELFPAY ==
--- NOTE | 2018-12-09 09:12 | ER Document Report ---
ED Medical Screen (RME) - General Chief Complaint: Abdominal Pain Stated Complaint: ABDOMINAL PAIN Time Seen by Provider: 12/09/18 09:08 Primary Care Provider: LAURA STONE MD [Primary Care Provider] - Follow up as needed Mode of Arrival: Ambulatory Information source: Patient Notes: 48-year-old male presented to ED for complaint of lower abdominal pain. He states that abdominal pain and cramping started Friday got much worse yesterday. He stated he started with diarrhea today. He states this morning after he had a bowel movement he had severe pain in his penis. He has no drainage burning or any difficulty with urine and he does have a history of kidney stones in the past that he passed on his own he did not have to have surgery for. 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 He has had no nausea and vomiting. Patient is alert and oriented respirations regular and unlabored speaking in full sentences. I have greeted and performed a rapid initial assessment of this patient. A comprehensive ED assessment and evaluation of the patient, analysis of test results and completion of medical decision making process will be conducted by an additional ED providers. Dictation of this chart was performed using voice recognition software; therefore, there may be some unintended grammatical errors. TRAVEL OUTSIDE OF THE [place] IN LAST 30 DAYS: No - Related Data Allergies/Adverse Reactions: No Known Allergies Allergy (Verified 09/04/16 08:32) Past Medical History - Past Medical History Cardiac Medical History: Reports: Hx Hypertension Renal/ Medical History: Reports: Hx Kidney Stones. Denies: Hx Peritoneal Dialysis GI Medical History: Reports: Hx Gastroesophageal Reflux Disease Psychiatric Medical History: Denies: Hx Depression - Immunizations Immunizations up to date: Yes Hx Diphtheria, Pertussis, Tetanus Vaccination: Yes History of Influenza Vaccine for 02/2017 - 07/2017 Season: Unknown Physical Exam - Vital signs Vitals: Temp Pulse Resp BP Pulse Ox 97.7 F 71 20 121/77 100 12/09/18 08:49 12/09/18 08:49 12/09/18 08:49 12/09/18 08:49 12/09/18 08:49 Course - Vital Signs Vital signs: Temp Pulse Resp BP Pulse Ox 97.7 F 71 20 121/77 100 12/09/18 08:49 12/09/18 08:49 12/09/18 08:49 12/09/18 08:49 12/09/18 08:49 Doctor's Discharge - Discharge Referrals: LAURA STONE MD [Primary Care Provider] - Follow up as needed
[2018-12-09 10:07] LABS: ABSOLUTE LYMPHOCYTES (AUTO) 1.3 10^3/uL (0.5-4.7); ABSOLUTE MONOCYTES (AUTO) 0.7 10^3/uL (0.1-1.4); ABSOLUTE NEUT (AUTO) 9.4 10^3/uL (1.7-8.2); BASOPHILS % (AUTO) 0.2 % (0-2); EOSINOPHILS % (AUTO) 0.1 % (0-6); HEMATOCRIT 46.4 % (37.9-51.0); HEMOGLOBIN 15.6 g/dL (13.5-17.0); LYMPHOCYTES % (AUTO) 11.4 % (13-45); MEAN CORPUSCULAR HEMOGLOBIN 29.8 pg (27.0-33.4); MEAN CORPUSCULAR HGB CONC 33.6 g/dL (32.0-36.0); MEAN CORPUSCULAR VOLUME 89 fl (80-97); MONOCYTES % (AUTO) 6.4 % (3-13); PLATELET COUNT 319 10^3/uL (150-450); RED BLOOD COUNT 5.23 10^6/uL (4.35-5.55); RED CELL DISTRIBUTION WIDTH 14.2 % (11.5-14.0); SEGMENTED NEUTROPHILS % (AUTO) 81.9 % (42-78); TOTAL CELLS COUNTED % (AUTO) 100 %; WHITE BLOOD COUNT 11.5 10^3/uL (4.0-10.5)
[2018-12-09 10:11] LABS: APPEARANCE,URINE CLEAR; BILIRUBIN,URINE SMALL (NEGATIVE); COLOR,URINE AMBER; GLUCOSE, URINE NEGATIVE (NEGATIVE); KETONES,URINE TRACE mg/dL (NEGATIVE); LEUKOCYTE ESTERASE,URINE NEGATIVE (NEGATIVE); NITRITE,URINE NEGATIVE (NEGATIVE); PROTEIN,URINE 100 mg/dL (NEGATIVE); URINE SPECIFIC GRAVITY 1.043
--- NOTE | 2018-12-09 10:14 | RADIOLOGY REPORT (SQ) ---
EXAM DESCRIPTION: CT ABD/PELVIS NO ORAL OR IV COMPLETED DATE/TIME: 12/09/2018 9:52 am REASON FOR STUDY: lower abdominal pain worse after bm hx kidney ston COMPARISON: 09/04/2016. TECHNIQUE: CT scan of the abdomen and pelvis performed without intravenous or oral contrast. Images reviewed with lung, soft tissue, and bone windows. Reconstructed coronal and sagittal MPR images revi ewed. All images stored on PACS. All CT scanners at this facility use dose modulation, iterative reconstruction, and/or weight based d osing when appropriate to reduce radiation dose to as low as reasonably achievable (ALARA). [facility]: Dose Right [facility]: CareDose [facility]: Dose Right [facility]: Teradose 4D [facility]: [employer] RADIATION DOSE: CT Rad equipment meets quality standard of care and radiation dose reduction techniq ues were employed. CTDIvol: 8.2 mGy. DLP: 422 mGy-cm.mGy. LIMITATIONS: None. FINDINGS: LOWER CHEST: No significant findings. No nodules or infiltrates. NON-CONTRASTED LIVER, SPLEEN, ADRENALS: Evaluation limited by lack of IV contrast. No identified sign ificant masses. PANCREAS: No masses. No peripancreatic inflammatory changes. GALLBLADDER: No identified stones by CT criteria. No inflammatory changes to suggest cholecystitis. RIGHT KIDNEY AND URETER: No suspicious masses. Assessment limited by lack of IV contrast. No signif icant calcifications. No hydronephrosis or hydroureter. LEFT KIDNEY AND URETER: No suspicious masses. Assessment limited by lack of IV contrast. No signifi cant calcifications. No hydronephrosis or hydroureter. AORTA AND RETROPERITONEUM: No aneurysm. No retroperitoneal masses or adenopathy. BOWEL AND PERITONEAL CAVITY: There is inflammatory stranding with scattered locules of extraluminal g as most conspicuous within the distal sigmoid colon (series 3, image [id number]). There is scattered add itional foci of extraluminal gas within the mesenteric. No large volume pneumoperitoneum. No well-f ormed drainable collection. Trace free fluid within the pelvis. Mild scattered sigmoid diverticula. APPENDIX: Normal. PELVIS, BLADDER, AND ABDOMINAL WALL:No abnormal masses. No free fluid. Bladder normal. BONES: No significant findings. OTHER: No other significant finding. IMPRESSION: 1. Findings most suggestive of sigmoid diverticulitis although no significant diverticu la are visualized, likely secondary to decompressed bowel. There is perisigmoid inflammation with sc attered foci of extraluminal gas as detailed above. No evidence of well-formed drainable collection. Recommend surgical consultation. 2. No evidence of nephrolithiasis or obstructive uropathy. Findings discussed with Jorge at 1005 hours on 12/09/2018. COMMENT: Quality ID # [id number]: Final reports with documentation of one or more dose reduction techniques (e.g., Automated exposure control, adjustment of the mA and/or kV according to patient size, use of iterative reconstruction technique) TECHNICAL DOCUMENTATION: JOB ID: [id number] [employer]- All Rights Reserved Reading location - IP/workstation name: [email or web address]
[2018-12-09 10:26] LABS: ALANINE AMINOTRANSFERASE 16 U/L (21-72); ALBUMIN 4.4 g/dL (3.5-5.0); ALKALINE PHOSPHATASE 53 U/L (38-126); ANION GAP 9 (5-19); ASPARTATE AMINO TRANSFERASE 18 U/L (17-59); BILIRUBIN,DIRECT 0.3 mg/dL (0.0-0.4); BILIRUBIN,TOTAL 1.1 mg/dL (0.2-1.3); BLOOD UREA NITROGEN 12 mg/dL (7-20); CALCIUM 9.4 mg/dL (8.4-10.2); CARBON DIOXIDE 30 mmol/L (22-30); CHLORIDE 100 mmol/L (98-107); GLUCOSE 98 mg/dL (75-110); POTASSIUM 3.9 mmol/L (3.6-5.0); TOTAL PROTEIN 7.8 g/dL (6.3-8.2)
[2018-12-09] MEDS ORDERED: PIPERACILLIN/TAZOBACTAM 3.375 GM VIAL IV ONE (10:53)
[2018-12-09] MEDS ORDERED: ONDANSETRON HCL INJ/PF 4 MG/2 ML SDV IV ONE (10:54)
[2018-12-09] MEDS ORDERED: MORPHINE SULFATE 10 MG/ML INJ IV ONE (10:54)
[2018-12-09] MEDS ORDERED: NORMAL SALINE 1000 ML 1,000 ML IV ONE (10:54)
--- NOTE | 2018-12-09 10:54 | ER Document Report ---
ED GI/ - General Chief Complaint: Abdominal Pain Stated Complaint: ABDOMINAL PAIN Time Seen by Provider: 12/09/18 09:08 Primary Care Provider: LAURA STONE MD [Primary Care Provider] - Follow up as needed Mode of Arrival: Ambulatory Information source: Patient TRAVEL OUTSIDE OF THE [place] IN LAST 30 DAYS: No - Related Data Allergies/Adverse Reactions: No Known Allergies Allergy (Verified 09/04/16 08:32) Past Medical History - General Information source: Patient - Social History Smoking Status: Never Smoker Chew tobacco use (# tins/day): No Drug Abuse: None Family History: Reviewed & Not Pertinent Patient has suicidal ideation: No Patient has homicidal ideation: No - Past Medical History Cardiac Medical History: Reports: Hx Hypertension Renal/ Medical History: Reports: Hx Kidney Stones. Denies: Hx Peritoneal Dialysis GI Medical History: Reports: Hx Gastroesophageal Reflux Disease Psychiatric Medical History: Denies: Hx Depression - Immunizations Immunizations up to date: Yes Hx Diphtheria, Pertussis, Tetanus Vaccination: Yes Physical Exam - Vital signs Vitals: Temp Pulse Resp BP Pulse Ox 97.7 F 71 20 121/77 100 12/09/18 08:49 12/09/18 08:49 12/09/18 08:49 12/09/18 08:49 12/09/18 08:49 Course - Vital Signs Vital signs: Temp Pulse Resp BP Pulse Ox 97.7 F 71 20 121/77 100 12/09/18 08:49 12/09/18 08:49 12/09/18 08:49 12/09/18 08:49 12/09/18 08:49 - Laboratory Result Diagrams: 12/09/18 09:35 12/09/18 09:35 Laboratory results interpreted by me: 12/09/18 12/09/18 12/09/18 09:35 09:35 09:35 WBC 11.5 H RDW 14.2 H Seg Neutrophils % 81.9 H Lymphocytes % 11.4 L Absolute Neutrophils 9.4 H ALT 16 L Urine Protein 100 H Urine Ketones TRACE H Urine Bilirubin SMALL H Urine Urobilinogen 4.0 H Discharge - Discharge Referrals: LAURA STONE MD [Primary Care Provider] - Follow up as needed
--- NOTE | 2018-12-09 11:01 | ER Document Report ---
ED GI/ - General Chief Complaint: Abdominal Pain Stated Complaint: ABDOMINAL PAIN Time Seen by Provider: 12/09/18 09:08 Primary Care Provider: LAURA STONE MD [Primary Care Provider] - Follow up as needed Mode of Arrival: Ambulatory Notes: HPI: 48 hold male who presents today with the onset around 2 days ago with some slow progressive bilateral lower infraumbilical pain. No radiation. No aggravating relieving factors. No nausea, vomiting, but the patient did feel feverish last evening. He did have one episode of dysuria. He denies any penile or testicular pain. Mild bilateral lower back pain. History of kidney stone x1. ROS: See HPI All other review of systems reviewed and otherwise negative Reviewed vital signs and nursing note as charted by RN. PHYSICAL EXAM: CONSTITUTIONAL: Alert and oriented and responds appropriately to questions. Well-appearing; well-nourished HEAD: Normocephalic; atraumatic EYES: Sclerae non-icteric CARD: Regular rate and rhythm; no murmurs; symmetric distal pulses RESP: Normal chest excursion without splinting or tachypnea; breath sounds clear and equal bilaterally ABD/GI: Normal bowel sounds; non-distended; soft, some tenderness without any obvious rebound or guarding to the bilateral lower quadrants of the abdomen GI/: Patient has no penile pain, discharge, testicular pain or swelling BACK: The back appears normal and is non-tender to palpation; no CVA tenderness EXT: Normal ROM in all joints; non-tender to palpation; no edema SKIN: No acute lesions noted NEURO: CN 2-12 intact; 5/5 bilateral upper and lower extremity strength with sensation intact to light touch PSYCH: The patient's mood and manner are appropriate. Grooming and personal hygiene are appropriate. TRAVEL OUTSIDE OF THE [place] IN LAST 30 DAYS: No - Related Data Allergies/Adverse Reactions: No Known Allergies Allergy (Verified 09/04/16 08:32) Past Medical History - General Information source: Patient - Social History Smoking Status: Never Smoker Chew tobacco use (# tins/day): No Drug Abuse: None Family History: Reviewed & Not Pertinent Patient has suicidal ideation: No Patient has homicidal ideation: No - Past Medical History Cardiac Medical History: Reports: Hx Hypertension Renal/ Medical History: Reports: Hx Kidney Stones. Denies: Hx Peritoneal Dialysis GI Medical History: Reports: Hx Gastroesophageal Reflux Disease Psychiatric Medical History: Denies: Hx Depression - Immunizations Immunizations up to date: Yes Hx Diphtheria, Pertussis, Tetanus Vaccination: Yes Physical Exam - Vital signs Vitals: Temp Pulse Resp BP Pulse Ox 97.7 F 71 20 121/77 100 12/09/18 08:49 12/09/18 08:49 12/09/18 08:49 12/09/18 08:49 12/09/18 08:49 Course - Re-evaluation Re-evalutation: Given the history and physical examination, we will order basic labs, liver panel, lipase, urine analysis, and an renal colic CT scan given the patient's history of kidney stones with flank pain and suprapubic discomfort. Also concern about possible intra-abdominal infection or infected kidney stones given the subjective fevers at home. 12/09/18 10:57 Labs and imaging as recorded. I have consulted the general surgical team. I have provided Zosyn and liter of fluid. Vital signs are stable. Abdomen exam is unchanged. Pain medications have been ordered. - Vital Signs Vital signs: Temp Pulse Resp BP Pulse Ox 97.7 F 71 20 121/77 100 12/09/18 08:49 12/09/18 08:49 12/09/18 08:49 12/09/18 08:49 12/09/18 08:49 - Laboratory Result Diagrams: 12/09/18 09:35 12/09/18 09:35 Laboratory results interpreted by me: 12/09/18 12/09/18 12/09/18 09:35 09:35 09:35 WBC 11.5 H RDW 14.2 H Seg Neutrophils % 81.9 H Lymphocytes % 11.4 L Absolute Neutrophils 9.4 H ALT 16 L Urine Protein 100 H Urine Ketones TRACE H Urine Bilirubin SMALL H Urine Urobilinogen 4.0 H Discharge - Discharge Clinical Impression: Perforation of sigmoid colon due to diverticulitis Condition: Fair Disposition: ADMITTED INPATIENT Admitting Provider: Surgicalist Unit Admitted: Telemetry Referrals: LAURA STONE MD [Primary Care Provider] - Follow up as needed
[2018-12-09] MEDS ORDERED: ONDANSETRON HCL INJ/PF 4 MG/2 ML SDV IV PRN (11:37)
[2018-12-09] MEDS ORDERED: KETOROLAC TROMETHAMINE INJ/PF 30 MG/1 ML SDV ONE (12:14)
[2018-12-09] MEDS: 1/2 NORMAL SALINE 1,000 ML IV PRN (12:17)
[2018-12-09] MEDS ORDERED: KETOROLAC TROMETHAMINE INJ/PF 30 MG/1 ML SDV IV ONE (12:18)
[2018-12-09] MEDS: MORPHINE SULFATE 10 MG/ML INJ IV PRN ×3 (12:19→22:00)
[2018-12-09] MEDS ORDERED: KETOROLAC TROMETHAMINE INJ/PF 30 MG/1 ML SDV IV SCH (14:00)
[2018-12-09] MEDS: KETOROLAC TROMETHAMINE INJ/PF 30 MG/1 ML SDV IV SCH (17:47)
[2018-12-09] MEDS: PIPERACILLIN SODIUM/TAZOBACTAM 3.375 GM in NORMAL SALINE 100 ML IV SCH (18:11)
--- NOTE | 2018-12-09 19:05 | PDOC H&P ---
History of Present Illness Admission Date/PCP: 12/09/18 11:55 LAURA STONE MD Patient complains of: Bilateral lower quadrant abdominal pain, severe History of Present Illness: JO ANN COTO is a 48 year old male with a 3-day history of bilateral lower quadrant abdominal pain that has intensified and worsened. Patient reports the pain is cramping, severe, and unrelenting. His pain started as a dull ache but has progressed over the last 72 hours. His pain radiates to the flank bilaterally. Nothing makes the pain better, movement and palpation make it worse. He denies melena, hematochezia, hematemesis, nausea, vomiting, headache, chest pain, shortness of breath, fevers, chills, palpitations, orthostasis. He does report malaise and fatigue. The patient has never had a colonoscopy. Past Medical History Cardiac Medical History: Reports: Hypertension GI Medical History: Reports: Gastroesophageal Reflux Disease Psychiatric Medical History: Denies: Depression Social History Smoking Status: Former Smoker Frequency of Alcohol Use: None Hx Recreational Drug Use: No Drugs: None Hx Prescription Drug Abuse: No - Advance Directive Resuscitation Status: Full Code Family History Family History: Reviewed & Not Pertinent Parental Family History Reviewed: Yes Children Family History Reviewed: Yes Sibling(s) Family History Reviewed.: Yes Medication/Allergy Home Medications: No Home Medications 12/09/18 Allergies/Adverse Reactions: No Known Allergies Allergy (Verified 09/04/16 08:32) Review of Systems Constitutional: PRESENT: fatigue. ABSENT: anorexia, chills, fever(s), headache(s) Eyes: ABSENT: visual disturbances Ears: ABSENT: hearing changes Nose, Mouth, and Throat: ABSENT: sore throat Cardiovascular: ABSENT: chest pain Respiratory: ABSENT: cough Gastrointestinal: PRESENT: abdominal pain, bloating. ABSENT: hematemesis, hematochezia, melena, nausea, vomiting Genitourinary: ABSENT: dysuria Musculoskeletal: ABSENT: back pain Integumentary: ABSENT: lesions, pruritus, rash Neurological: ABSENT: confusion, convulsions, dizziness Psychiatric: ABSENT: anxiety, depression Endocrine: ABSENT: cold intolerance, heat intolerance Hematologic/Lymphatic: ABSENT: easy bleeding, easy bruising Physical Exam Vital Signs: Temp Pulse Resp BP Pulse Ox 98.8 F 87 18 118/68 100 12/09/18 17:38 12/09/18 17:38 12/09/18 17:38 12/09/18 17:38 12/09/18 17:38 Intake & Output 12/08/18 12/09/18 12/10/18 06:59 06:59 06:59 Intake Total 1752 Balance 1752 Weight 82.2 kg General appearance: PRESENT: no acute distress Head exam: PRESENT: atraumatic, normocephalic Eye exam: PRESENT: EOMI, PERRLA. ABSENT: scleral icterus Mouth exam: PRESENT: moist, neck supple Neck exam: ABSENT: meningismus, tenderness, thyromegaly, tracheal deviation Respiratory exam: PRESENT: clear to auscultation sowmya, unlabored. ABSENT: chest wall tenderness, tachypnea Cardiovascular exam: PRESENT: RRR Pulses: PRESENT: normal radial pulses Vascular exam: PRESENT: normal capillary refill GI/Abdominal exam: PRESENT: distended - Mild, soft, tenderness - Bilateral lower quadrants. ABSENT: guarding, rebound, rigid Rectal exam: PRESENT: deferred Extremities exam: ABSENT: clubbing Musculoskeletal exam: ABSENT: deformity Neurological exam: PRESENT: alert, awake, oriented to person, oriented to place, oriented to time, oriented to situation, CN II-XII grossly intact. ABSENT: motor sensory deficit Psychiatric exam: ABSENT: agitated, anxious, depressed Skin exam: ABSENT: cyanosis, erythema, jaundice Results Laboratory Results: 12/09/18 09:35 12/09/18 09:35 12/09/18 12/09/18 12/09/18 09:35 09:35 09:35 WBC 11.5 H RBC 5.23 Hgb 15.6 Hct 46.4 MCV 89 MCH 29.8 MCHC 33.6 RDW 14.2 H Plt Count 319 Seg Neutrophils % 81.9 H Lymphocytes % 11.4 L Monocytes % 6.4 Eosinophils % 0.1 Basophils % 0.2 Absolute Neutrophils 9.4 H Absolute Lymphocytes 1.3 Absolute Monocytes 0.7 Absolute Eosinophils 0.0 Absolute Basophils 0.0 Sodium 139.0 Potassium 3.9 Chloride 100 Carbon Dioxide 30 Anion Gap 9 BUN 12 Creatinine 1.17 Est GFR ( Amer) > 60 Est GFR (Non-Af Amer) > 60 Glucose 98 Calcium 9.4 Total Bilirubin 1.1 AST 18 ALT 16 L Alkaline Phosphatase 53 Total Protein 7.8 Albumin 4.4 Urine Color ADIN Urine Appearance CLEAR Urine pH 5.0 Ur Specific [place] 1.043 Urine Protein 100 H Urine Glucose (UA) NEGATIVE Urine Ketones TRACE H Urine Blood NEGATIVE Urine Nitrite NEGATIVE Ur Leukocyte Esterase NEGATIVE Urine WBC (Auto) 3 Urine RBC (Auto) 3 Impressions: Abdomen/Pelvis CT 12/09/18 09:09 IMPRESSION: 1. Findings most suggestive of sigmoid diverticulitis although no significant diverticula are visualized, likely secondary to decompressed bowel. There is perisigmoid inflammation with scattered foci of extraluminal gas as detailed above. No evidence of well-formed drainable collection. Recommend tesfaye gical consultation. 2. No evidence of nephrolithiasis or obstructive uropathy. Findings discussed with Jorge at 1005 hours on 12/09/2018. Assessment & Plan - Diagnosis (1) Perforation of sigmoid colon due to diverticulitis Is this a current diagnosis for this admission?: Yes - Plan Summary Plan Summary: This is a 48-year-old male with diverticulitis. At present, the patient does not exhibit signs of peritonitis. He has no sign of intra-abdominal sepsis, or need for urgent surgical intervention. I will admit the patient to the hospital, start him on intravenous fluids, intravenous antibiotics, and pain medication. I will monitor his progress. I have discussed the treatment for diverticulitis at length. I will continue with intravenous antibiotics for the next 48 to 72 hours. If the patient worsens in this timeframe, he may still require operative intervention. I will follow his abdominal exam very closely. Repeat labs tomorrow.
[2018-12-09] MEDS: FAMOTIDINE INJ/PF 20 MG/2 ML SDV IV SCH (22:00)
[2018-12-10] MEDS: PIPERACILLIN SODIUM/TAZOBACTAM 3.375 GM in NORMAL SALINE 100 ML IV SCH ×4 (00:50→17:11)
[2018-12-10] MEDS: KETOROLAC TROMETHAMINE INJ/PF 30 MG/1 ML SDV IV SCH ×3 (02:30→17:14)
[2018-12-10 06:28] LABS: HEMOGLOBIN 14.3 g/dL (13.5-17.0); MEAN CORPUSCULAR HEMOGLOBIN 29.7 pg (27.0-33.4); MEAN CORPUSCULAR HGB CONC 33.2 g/dL (32.0-36.0); MEAN CORPUSCULAR VOLUME 89 fl (80-97); PLATELET COUNT 262 10^3/uL (150-450); RED BLOOD COUNT 4.82 10^6/uL (4.35-5.55); RED CELL DISTRIBUTION WIDTH 14.1 % (11.5-14.0)
[2018-12-10 06:35] LABS: ANION GAP 11 (5-19); BLOOD UREA NITROGEN 14 mg/dL (7-20); CALCIUM 8.5 mg/dL (8.4-10.2); CARBON DIOXIDE 22 mmol/L (22-30); CHLORIDE 107 mmol/L (98-107); GLUCOSE 104 mg/dL (75-110); POTASSIUM 3.6 mmol/L (3.6-5.0)
[2018-12-10 07:15] LABS: ABSOLUTE LYMPHOCYTES# (MANUAL) 1.1 10^3/uL (0.5-4.7); ABSOLUTE MONOCYTES # (MANUAL) 0.1 10^3/uL (0.1-1.4); ANISOCYTOSIS SLIGHT; BAND NEUTROPHILS % (MANUAL) 2 % (3-5); BASOPHILS % (MANUAL) 0 % (0-2); EOSINOPHILS % (MANUAL) 0 % (0-6); LYMPHOCYTES % (MANUAL) 8 % (13-45); MONOCYTES % (MANUAL) 1 % (3-13); OVALOCYTES SLIGHT; PLATELET COMMENT ADEQUATE; POIKILOCYTOSIS SLIGHT; SEGMENTED NEUTROPHILS % (MAN) 89 % (42-78); TOTAL CELLS COUNTED 100
[2018-12-10] MEDS: FAMOTIDINE INJ/PF 20 MG/2 ML SDV IV SCH ×2 (09:22→21:16)
[2018-12-10] MEDS: ENOXAPARIN SODIUM INJ 40 MG/0.4 ML DISP.SYRIN SUBCUT SCH (09:22)
[2018-12-10] MEDS: MORPHINE SULFATE 10 MG/ML INJ IV PRN ×2 (11:02→20:14)
[2018-12-10] MEDS: 1/2 NORMAL SALINE 1,000 ML IV PRN (17:11)
--- NOTE | 2018-12-10 18:13 | PDOC PROGRESS REPORT ---
Subjective Progress Note for:: 12/10/18 Subjective:: lower abdominal pains Reason For Visit: SIGMOID DIVERTICULITIS Physical Exam Vital Signs: Temp Pulse Resp BP Pulse Ox 98.2 F 85 16 111/62 97 12/10/18 16:48 12/10/18 16:48 12/10/18 16:48 12/10/18 16:48 12/10/18 16:48 Intake & Output 12/09/18 12/10/18 12/11/18 06:59 06:59 06:59 Intake Total 2200 300 Balance 2200 300 Weight 82.2 kg Exam: Abdomen is soft with moderate tenderness both lower quadrants Results Laboratory Results: 12/10/18 06:05 12/10/18 06:05 12/10/18 12/10/18 06:05 06:05 WBC 14.0 H RBC 4.82 Hgb 14.3 Hct 43.0 MCV 89 MCH 29.7 MCHC 33.2 RDW 14.1 H Plt Count 262 Seg Neutrophils % Not Reportable Lymphocytes % Not Reportable Monocytes % Not Reportable Eosinophils % Not Reportable Basophils % Not Reportable Absolute Neutrophils Not Reportable Absolute Lymphocytes Not Reportable Absolute Monocytes Not Reportable Absolute Eosinophils Not Reportable Absolute Basophils Not Reportable Sodium 140.2 Potassium 3.6 Chloride 107 Carbon Dioxide 22 Anion Gap 11 BUN 14 Creatinine 1.47 H Est GFR ( Amer) > 60 Est GFR (Non-Af Amer) 51 L Glucose 104 Calcium 8.5 Impressions: Abdomen/Pelvis CT 12/09/18 09:09 IMPRESSION: 1. Findings most suggestive of sigmoid diverticulitis although no significant diverticula are visualized, likely secondary to decompressed bowel. There is perisigmoid inflammation with scattered foci of extraluminal gas as detailed above. No evidence of well-formed drainable collection. Recommend surgical consultation. 2. No evidence of nephrolithiasis or obstructive uropathy. Findings discussed with Jorge at 1005 hours on 12/09/2018. Assessment & Plan - Diagnosis (1) Perforation of sigmoid colon due to diverticulitis Is this a current diagnosis for this admission?: Yes - Time Time Spent with patient: 15-24 minutes - Inpatient Certification Medical Necessity: Need For IV Fluids, Need for IV Antibiotics - Plan Summary Plan Summary: Continue hydration and IV antibiotics
[2018-12-11] MEDS: PIPERACILLIN SODIUM/TAZOBACTAM 3.375 GM in NORMAL SALINE 100 ML IV SCH ×5 (00:50→23:12)
[2018-12-11] MEDS: KETOROLAC TROMETHAMINE INJ/PF 30 MG/1 ML SDV IV SCH ×3 (01:53→17:12)
[2018-12-11 04:30] LABS: HEMATOCRIT 38.4 % (37.9-51.0); MEAN CORPUSCULAR HGB CONC 33.9 g/dL (32.0-36.0); MEAN CORPUSCULAR VOLUME 89 fl (80-97); PLATELET COUNT 248 10^3/uL (150-450); RED BLOOD COUNT 4.34 10^6/uL (4.35-5.55); RED CELL DISTRIBUTION WIDTH 14.2 % (11.5-14.0); WHITE BLOOD COUNT 15.4 10^3/uL (4.0-10.5)
[2018-12-11 04:48] LABS: ANION GAP 9 (5-19); BLOOD UREA NITROGEN 21 mg/dL (7-20); CALCIUM 8.7 mg/dL (8.4-10.2); CARBON DIOXIDE 24 mmol/L (22-30); CHLORIDE 107 mmol/L (98-107); GLUCOSE 91 mg/dL (75-110); POTASSIUM 3.9 mmol/L (3.6-5.0)
[2018-12-11 05:31] LABS: ABSOLUTE LYMPHOCYTES# (MANUAL) 1.2 10^3/uL (0.5-4.7); ABSOLUTE MONOCYTES # (MANUAL) 0.5 10^3/uL (0.1-1.4); BAND NEUTROPHILS % (MANUAL) 5 % (3-5); BASOPHILS % (MANUAL) 0 % (0-2); EOSINOPHILS % (MANUAL) 1 % (0-6); LYMPHOCYTES % (MANUAL) 8 % (13-45); MONOCYTES % (MANUAL) 3 % (3-13); RBC MORPHOLOGY COMMENT NORMO-CYTIC/CHROMIC; SEGMENTED NEUTROPHILS % (MAN) 83 % (42-78); TOTAL CELLS COUNTED 100
[2018-12-11 05:32] LABS: PLATELET COMMENT ADEQUATE
[2018-12-11] MEDS: ENOXAPARIN SODIUM INJ 40 MG/0.4 ML DISP.SYRIN SUBCUT SCH (09:35)
[2018-12-11] MEDS: FAMOTIDINE INJ/PF 20 MG/2 ML SDV IV SCH ×2 (09:35→21:57)
[2018-12-11] MEDS: 1/2 NORMAL SALINE 1,000 ML IV PRN (11:31)
--- NOTE | 2018-12-11 12:59 | PDOC PROGRESS REPORT ---
Subjective Progress Note for:: 12/11/18 Subjective:: lower abdominal pains Passed flatus x2 this am Reason For Visit: SIGMOID DIVERTICULITIS Physical Exam Vital Signs: Temp Pulse Resp BP Pulse Ox 98.7 F 76 22 H 111/66 98 12/11/18 11:04 12/11/18 11:04 12/11/18 11:04 12/11/18 11:04 12/11/18 11:04 Intake & Output 12/10/18 12/11/18 12/12/18 06:59 06:59 06:59 Intake Total 2200 1400 560 Balance 2200 1400 560 Weight 82.2 kg 83.5 kg Exam: abdomen is softwith mild tenderness lower abdomen Results Laboratory Results: 12/11/18 03:29 12/11/18 03:29 12/11/18 12/11/18 03:29 03:29 WBC 15.4 H RBC 4.34 L Hgb 13.0 L Hct 38.4 MCV 89 MCH 30.0 MCHC 33.9 RDW 14.2 H Plt Count 248 Seg Neutrophils % Not Reportable Lymphocytes % Not Reportable Monocytes % Not Reportable Eosinophils % Not Reportable Basophils % Not Reportable Absolute Neutrophils Not Reportable Absolute Lymphocytes Not Reportable Absolute Monocytes Not Reportable Absolute Eosinophils Not Reportable Absolute Basophils Not Reportable Sodium 140.4 Potassium 3.9 Chloride 107 Carbon Dioxide 24 Anion Gap 9 BUN 21 H Creatinine 2.30 H Est GFR ( Amer) 37 L Est GFR (Non-Af Amer) 30 L Glucose 91 Calcium 8.7 Impressions: Abdomen/Pelvis CT 12/09/18 09:09 IMPRESSION: 1. Findings most suggestive of sigmoid diverticulitis although no significant diverticula are visualized, likely secondary to decompressed bowel. There is perisigmoid inflammation with scattered foci of extraluminal gas as detailed above. No evidence of well-formed drainable collection. Recommend surgical consultation. 2. No evidence of nephrolithiasis or obstructive uropathy. Findings discussed with Jorge at 1005 hours on 12/09/2018. Assessment & Plan - Diagnosis (1) Perforation of sigmoid colon due to diverticulitis Is this a current diagnosis for this admission?: Yes - Time Time Spent with patient: 15-24 minutes - Inpatient Certification Medical Necessity: Need For IV Fluids, Need for Pain Control, Need for IV Antibiotics - Plan Summary Plan Summary: Increase IV Fluids. Cr up to 2.6 Continue IV antibiotics Start clears
[2018-12-11] MEDS ORDERED: NORMAL SALINE 1000 ML 1,000 ML IV ONE (13:00)
[2018-12-11] MEDS ORDERED: GLUCAGON,HUMAN RECOMB 1 MG INJ SUBCUT PRN (13:48)
[2018-12-11] MEDS ORDERED: DEXTROSE 40% GEL 15 GM TUBE PO PRN ×2 (13:48)
[2018-12-11] MEDS ORDERED: DEXTROSE 50%-WATER 25 GM/50 ML DISP.SYRIN IV PRN ×2 (13:48)
[2018-12-11] MEDS: MORPHINE SULFATE 10 MG/ML INJ IV PRN (19:36)
[2018-12-11] MEDS: NORMAL SALINE 1000 ML 1,000 ML IV PRN (23:12)
[2018-12-12] MEDS: KETOROLAC TROMETHAMINE INJ/PF 30 MG/1 ML SDV IV SCH ×2 (01:22→09:45)
[2018-12-12] MEDS: ONDANSETRON HCL INJ/PF 4 MG/2 ML SDV IV PRN (04:19)
[2018-12-12 06:14] LABS: HEMATOCRIT 37.7 % (37.9-51.0); HEMOGLOBIN 12.5 g/dL (13.5-17.0); MEAN CORPUSCULAR HEMOGLOBIN 29.7 pg (27.0-33.4); MEAN CORPUSCULAR HGB CONC 33.2 g/dL (32.0-36.0); MEAN CORPUSCULAR VOLUME 89 fl (80-97); PLATELET COUNT 242 10^3/uL (150-450); RED BLOOD COUNT 4.21 10^6/uL (4.35-5.55); RED CELL DISTRIBUTION WIDTH 14.3 % (11.5-14.0); WHITE BLOOD COUNT 13.4 10^3/uL (4.0-10.5)
[2018-12-12] MEDS: PIPERACILLIN SODIUM/TAZOBACTAM 3.375 GM in NORMAL SALINE 100 ML IV SCH ×2 (06:25→12:56)
[2018-12-12 06:33] LABS: ALANINE AMINOTRANSFERASE 12 U/L (21-72); ALBUMIN 2.9 g/dL (3.5-5.0); ALKALINE PHOSPHATASE 68 U/L (38-126); ANION GAP 7 (5-19); ASPARTATE AMINO TRANSFERASE 17 U/L (17-59); BILIRUBIN,DIRECT 0.5 mg/dL (0.0-0.4); BILIRUBIN,TOTAL 0.9 mg/dL (0.2-1.3); BLOOD UREA NITROGEN 30 mg/dL (7-20); CALCIUM 8.7 mg/dL (8.4-10.2); CARBON DIOXIDE 24 mmol/L (22-30); CHLORIDE 108 mmol/L (98-107); GLUCOSE 100 mg/dL (75-110); POTASSIUM 4.2 mmol/L (3.6-5.0); TOTAL PROTEIN 5.9 g/dL (6.3-8.2)
[2018-12-12 06:37] LABS: ABSOLUTE LYMPHOCYTES# (MANUAL) 0.7 10^3/uL (0.5-4.7); ABSOLUTE MONOCYTES # (MANUAL) 0.5 10^3/uL (0.1-1.4); BASOPHILS % (MANUAL) 0 % (0-2); EOSINOPHILS % (MANUAL) 0 % (0-6); LYMPHOCYTES % (MANUAL) 5 % (13-45); MONOCYTES % (MANUAL) 4 % (3-13); SEGMENTED NEUTROPHILS % (MAN) 91 % (42-78); TOTAL CELLS COUNTED 100
[2018-12-12 06:38] LABS: PLATELET COMMENT ADEQUATE; RBC MORPHOLOGY COMMENT NORMO-CYTIC/CHROMIC
[2018-12-12] MEDS: MORPHINE SULFATE 10 MG/ML INJ IV PRN ×2 (08:35→13:02)
[2018-12-12] MEDS: FAMOTIDINE INJ/PF 20 MG/2 ML SDV IV SCH ×2 (09:45→23:48)
[2018-12-12] MEDS: ENOXAPARIN SODIUM INJ 40 MG/0.4 ML DISP.SYRIN SUBCUT SCH (09:46)
[2018-12-12] MEDS: NORMAL SALINE 1000 ML 1,000 ML IV PRN (09:48)
[2018-12-12] MEDS ORDERED: ONDANSETRON HCL INJ/PF 4 MG/2 ML SDV ONE (12:39)
[2018-12-12] MEDS ORDERED: NEOSTIGMINE METHYLSULFATE 10 MG/10 ML VIAL ONE (12:39)
[2018-12-12] MEDS ORDERED: DEXAMETHASONE SOD PHOSPHATE INJ 4 MG/1 ML VIAL ONE (12:39)
[2018-12-12] MEDS ORDERED: GLYCOPYRROLATE 1 MG/5 ML VIAL ONE (12:39)
[2018-12-12] MEDS ORDERED: SUCCINYLCHOLINE CHLORIDE INJ 200 MG/10 ML VIAL ONE (12:39)
[2018-12-12] MEDS ORDERED: VECURONIUM BROMIDE INJ 10 MG VIAL IV ONE (12:39)
[2018-12-12] MEDS ORDERED: NORMAL SALINE 1000 ML 1,000 ML IV ONE ×2 (14:16→14:17)
[2018-12-12] MEDS ORDERED: NORMAL SALINE 1000 ML 2,000 ML IV ONE (15:30)
[2018-12-12] MEDS: LEVOFLOXACIN 500 MG/D5W RTU 500 MG/100 ML RTUPB IV SCH (15:33)
--- NOTE | 2018-12-12 16:05 | PDOC PROGRESS REPORT ---
Subjective Progress Note for:: 12/12/18 Subjective:: This is a 48-year-old male with sigmoid diverticulitis. The patient reports that his pain is improved, he has begun passing flatus, and had a bowel movement last night. The patient reports cramping in his abdomen. The patient is concerned that "he is not recovering fast enough". Currently, he denies chest pain, shortness of breath, fevers, chills, melena, hematochezia, hematemesis, dizziness, orthostasis, fatigue. He does report intermittent nausea. He has vomited once. Reason For Visit: SIGMOID DIVERTICULITIS Physical Exam Vital Signs: Temp Pulse Resp BP Pulse Ox 98.4 F 70 18 115/70 99 12/12/18 12:00 12/12/18 12:00 12/12/18 12:00 12/12/18 12:00 12/12/18 12:00 Intake & Output 12/11/18 12/12/18 12/13/18 06:59 06:59 06:59 Intake Total 1400 2087 1200 Balance 1400 2087 1200 Weight 83.5 kg 87.5 kg General appearance: PRESENT: no acute distress, cooperative Head exam: PRESENT: atraumatic, normocephalic Eye exam: PRESENT: EOMI, PERRLA. ABSENT: scleral icterus Mouth exam: PRESENT: moist, neck supple Neck exam: ABSENT: meningismus, tenderness, thyromegaly, tracheal deviation Respiratory exam: PRESENT: unlabored. ABSENT: chest wall tenderness, tachypnea, wheezes Cardiovascular exam: PRESENT: RRR Pulses: PRESENT: normal radial pulses GI/Abdominal exam: PRESENT: soft, tenderness - Right lower quadrant and left lower quadrant.. ABSENT: distended, firm, guarding Rectal exam: PRESENT: deferred Extremities exam: ABSENT: clubbing Musculoskeletal exam: ABSENT: deformity Neurological exam: PRESENT: alert, awake, oriented to person, oriented to place, oriented to time, oriented to situation Psychiatric exam: PRESENT: anxious - Mild. ABSENT: agitated, depressed Focused psych exam: ABSENT: delusional Skin exam: ABSENT: cyanosis, erythema, jaundice Results Laboratory Results: 12/12/18 05:32 12/12/18 05:32 12/12/18 12/12/18 05:32 05:32 WBC 13.4 H RBC 4.21 L Hgb 12.5 L Hct 37.7 L MCV 89 MCH 29.7 MCHC 33.2 RDW 14.3 H Plt Count 242 Seg Neutrophils % Not Reportable Lymphocytes % Not Reportable Monocytes % Not Reportable Eosinophils % Not Reportable Basophils % Not Reportable Absolute Neutrophils Not Reportable Absolute Lymphocytes Not Reportable Absolute Monocytes Not Reportable Absolute Eosinophils Not Reportable Absolute Basophils Not Reportable Sodium 139.1 Potassium 4.2 Chloride 108 H Carbon Dioxide 24 Anion Gap 7 BUN 30 H Creatinine 3.13 H Est GFR ( Amer) 26 L Est GFR (Non-Af Amer) 21 L Glucose 100 Calcium 8.7 Total Bilirubin 0.9 AST 17 ALT 12 L Alkaline Phosphatase 68 Total Protein 5.9 L Albumin 2.9 L Impressions: Abdomen/Pelvis CT 12/09/18 09:09 IMPRESSION: 1. Findings most suggestive of sigmoid diverticulitis although no significant diverticula are visualized, likely secondary to decompressed bowel. There is perisigmoid inflammation with scattered foci of extraluminal gas as detailed above. No evidence of well-formed drainable collection. Recommend surgical consultation. 2. No evidence of nephrolithiasis or obstructive uropathy. Findings discussed with Jorge at 1005 hours on 12/09/2018. Assessment & Plan - Diagnosis (1) Perforation of sigmoid colon due to diverticulitis Is this a current diagnosis for this admission?: Yes - Plan Summary Plan Summary: This is a 48-year-old male with diverticulitis. His white count has improved today, his abdominal tenderness is improving, he is passing flatus and having bowel movements. The patient is excessively concerned that he has not recovered fast enough. I have ensured him that he exhibits no signs of decompensation, free intraperitoneal perforation, or need for emergency surgery. I have recommended we stay the course (with intravenous antibiotics and bowel rest). If the patient's infectious process can be controlled, he can be discharged home and may elect to undergo laparoscopic sigmoid colon resection on an elective basis with minimal chance of colostomy/ileostomy. I have discussed with the patient that if he requires urgent surgery, with active infection present, that he will almost assuredly require a colostomy or diverting ileostomy. In order to ease the patient's anxiety, I will obtain a CT scan of the abdomen and pelvis to reevaluate the patient's diverticulitis. Increased creatinine today. Discontinue nephrotoxic drugs (Toradol and Zosyn). Start new antibiotics: Levaquin and Flagyl. DVT prophylaxis. Aggressive pulmonary toilet.
--- NOTE | 2018-12-12 16:36 | RADIOLOGY REPORT (SQ) ---
EXAM DESCRIPTION: CT ABD/PELVIS ORAL ONLY COMPLETED DATE/TIME: 12/12/2018 4:16 pm REASON FOR STUDY: abd pain, diverticulitis, eval for abscess COMPARISON: 12/09/2018 TECHNIQUE: CT scan of the abdomen and pelvis performed without intravenous and with oral contrast. I mages reviewed with lung, soft tissue, and bone windows. Reconstructed coronal and sagittal MPR image s reviewed. All images stored on PACS. All CT scanners at this facility use dose modulation, iterative reconstruction, and/or weight based d osing when appropriate to reduce radiation dose to as low as reasonably achievable (ALARA). [facility]: Dose Right [facility]: CareDose [facility]: Dose Right [facility]: Teradose 4D [facility]: Smart [employer] RADIATION DOSE: CT Rad equipment meets quality standard of care and radiation dose reduction techniq ues were employed. CTDIvol: 9.4 mGy. DLP: 477 mGy-cm.mGy. LIMITATIONS: None. FINDINGS: LOWER CHEST: Interval development of bibasilar atelectasis and small effusions. NON-CONTRASTED LIVER, SPLEEN, ADRENALS: Evaluation limited by lack of IV contrast. No identified sign ificant masses. PANCREAS: No masses. No peripancreatic inflammatory changes. GALLBLADDER: No identified stones by CT criteria. No inflammatory changes to suggest cholecystitis. RIGHT KIDNEY AND URETER: No suspicious masses. Assessment limited by lack of IV contrast. No signif icant calcifications. No hydronephrosis or hydroureter. LEFT KIDNEY AND URETER: No suspicious masses. Assessment limited by lack of IV contrast. No signifi cant calcifications. No hydronephrosis or hydroureter. AORTA AND RETROPERITONEUM: No aneurysm. No retroperitoneal masses or adenopathy. BOWEL AND PERITONEAL CAVITY: There is now clearly diffuse free intraperitoneal air. No obstruction. Mild inflammatory changes along the sigmoid colon. Possible site of perforation medially. Small am ount of free fluid. APPENDIX: Not visualized. PELVIS, BLADDER, AND ABDOMINAL WALL:Small amount of free fluid. Inflammatory changes along the sigmo id colon. BONES: No significant findings. OTHER: No other significant finding. IMPRESSION: Intraperitoneal free air indicating perforation likely from sigmoid diverticular disease . Small amount of free fluid in the pelvis. Possible site of perforation along the medial sigmoid. Likely related to diverticulitis. Interval development of bilateral atelectasis and small effusions. COMMENT: The findings were sent to the Radiology Results Communication Center at 16:30 on 12/12/2018 to be communicated to a licensed caregiver. Quality ID # [id number]: Final reports with documentation of one or more dose reduction techniques (e.g., Au tomated exposure control, adjustment of the mA and/or kV according to patient size, use of iterative reconstruction technique) TECHNICAL DOCUMENTATION: JOB ID: [id number] [email or web address] All Rights Reserved Reading location - IP/workstation name: [email or web address]
[2018-12-12] MEDS: METRONIDAZOLE 500 MG/NS RTU 500 MG/100 ML RTUPB IV SCH (17:00)
--- NOTE | 2018-12-12 17:13 | Progress Note ---
Provider Note Provider Note: Patient's CT scan of the abdomen and pelvis was reviewed by me. Patient has increasing amounts of free intra-abdominal air. This is worrisome for continued or persistent perforation. I have discussed these findings with the patient. I have given him all of the options, including surgical intervention (colon res ection and ostomy placement) versus expectant management with close follow-up. The patient has chosen surgical intervention, as he is uneasy with continued observation. This is certainly a reasonable approach. Risks/benefits discussed, informed consent obtained, and all questions answered.
[2018-12-12] MEDS ORDERED: BUPIVACAINE HCL 0.25 % INJ/PF (2.5 MG/1 ML) 30 ML VIAL ONE (17:52)
[2018-12-12] MEDS ORDERED: FENTANYL CITRATE INJ/PF 250 MCG/5 ML AMPULE ONE (18:12)
[2018-12-12] MEDS ORDERED: PROPOFOL INJ 200 MG/20 ML VIAL IV ONE (18:13)
[2018-12-12] MEDS ORDERED: MIDAZOLAM 2 MG/2 ML INJ ONE (18:13)
[2018-12-12] MEDS ORDERED: HYDROMORPHONE HCL INJ/PF 2 MG/ML AMPULE ONE (18:13)
[2018-12-12] MEDS ORDERED: PROMETHAZINE HCL INJ 25 MG/1 ML VIAL IV PRN (19:17)
[2018-12-12] MEDS ORDERED: DIPHENHYDRAMINE HCL 50 MG/ML VIAL IV PRN (19:17)
[2018-12-12] MEDS ORDERED: MORPHINE SULFATE 10 MG/ML INJ IV PRN (19:17)
[2018-12-12] MEDS ORDERED: MEPERIDINE HCL/PF INJ 25 MG/1 ML DISP.SYRIN IV PRN (19:17)
[2018-12-12] MEDS ORDERED: FENTANYL CITRATE INJ/PF 100 MCG/2 ML AMPUL IV PRN ×3 (19:17)
[2018-12-12] MEDS: FENTANYL CITRATE INJ/PF 100 MCG/2 ML AMPUL ONE ×2 (22:15→22:30)
--- NOTE | 2018-12-12 22:16 | Operative Report ---
Nonrecallable Operative Report DATE OF SURGERY: 12/12/18 PREOPERATIVE DIAGNOSIS: Perforated sigmoid diverticulitis POSTOPERATIVE DIAGNOSIS: 1. Perforated sigmoid diverticulitis. 2. Involvement of the appendix in the pelvic inflammation. 3. Large skin tag in the suprapubic midline, removed to facilitate entry into the abdomen. OPERATION: 1. Exploratory laparotomy. 2. Sigmoid colon resection. 3. Diverting loop ileostomy. 4. Appendectomy. SURGEON: OLIVER BENSON ANESTHESIA: GA TISSUE REMOVED OR ALTERED: 1. Sigmoid colon. 2. Appendix COMPLICATIONS: None apparent ESTIMATED BLOOD LOSS: 100 cc PROCEDURE: Drains/implants: 15 [place] round Edd drain in the pelvis, adjacent to the anastomosis. Procedure in detail: After informed consent was obtained, the patient was brought to the operating room and laid in the supine position. The area of the abdomen was prepped and draped in a normal sterile fashion. An incision was created from above the umbilicus to the suprapubic margin. There was a large skin tag in the suprapubic midline. This was removed from its stalk and sent to pathology. Dissection was carried through the subcutaneous tissue using sharp and blunt dissection. The linea alba fascia was incised sharply, the abdomen was entered sharply. Upon entry into the abdomen there was purulent peritonitis noted. The abdomen was copiously irrigated and suctioned until clear. Next, visualization of the sigmoid colon was performed. The Omni retractor was placed on the patient. The small bowel was retracted into bilateral upper quadrants. The sigmoid colon was densely inflamed. There were several loops of small bowel adherent to it, as well as the appendix. The appendix was involved in the inflammation. The small bowel and appendix were freed from the inflamed sigmoid colon. The sigmoid colon was then freed from the lateral pelvic sidewall. The sigmoid colon was then divided proximal and distal to the inflammation, using the contour stapler. The diseased sigmoid colon was then freed from the mesentery using the LigaSure device, and passed off the field. The white line of Toldt was divided on the left, freeing the descending colon. The descending colon was then brought in apposition to the rectum. There was no obvious tension when the 2 ends were brought together. Next, attention was turned to creation of the anastomosis. The 29 EEA dilator was passed into the anus and up the rectum. It passed easily. Next, the EEA stapler was chosen. The anvil was placed into the descending colon and sutured into place. The EEA stapler was then passed up the anus, up the rectum, to the staple line. The spike was deployed through the previous staple line. The anvil was to the stapler, the stapler was closed and fired according to custom grinder recommendation. Once the anastomosis was created, attention was turned to examination of the remaining abdominal contents. The small bowel was run from the ligament of Treitz to the ileocecal valve. There was a moderate amount of inflammation at the terminal ileum. The remaining colon was examined visually. The appendix appeared inflamed. Secondary to this, the mesoappendix was taken down using the LigaSure device. A PDS Endoloop was secured around the base of the appendix, and the appendix was amputated. The remaining colon was examined. The right colon, transverse colon, and descending colon all appeared normal. The abdomen was then copiously irrigated and suctioned until the effluent was clear. A 15 [place] round Edd drain was placed through separate stab incision in the left lower quadrant, and directed into the pelvis. The drain was placed adjacent to the anastomosis. Next an appropriate place was chosen for a diverting loop ileostomy. Placed in the right lower quadrant was chosen. An incision was created in the skin, and deepened using blunt dissection. A cruciate incision was created in the anterior rectus sheath, as well as the posterior rectus sheath. 2 fingers were then passed through the hole to dilate it. A loop of terminal ileum was then passed up through the fascia and held externally with a red rubber catheter. Once this was performed, the midline fascia was closed. The midline fascia was closed using #1 double-stranded, loop PDS suture in simple running fashion. The overlying skin was closed using skin horace. Dressings were then placed. Attention was then turned to maturing of the right lower quadrant diverting ileostomy. The red rubber catheter was sutured to the skin and used as a buttress. The small bowel was then opened with electrocautery. The ileostomy was matured in Alis fashion using 3-0 Vicryl suture circumferentially. Once this was completed, an ostomy appliance was placed, and the procedure was concluded. All sponge, instrument, and needle counts were correct x2. Condition: Stable.
[2018-12-12] MEDS ORDERED: PHARMACY COMMUNICATION ORDER MC NR (22:22)
[2018-12-12] MEDS ORDERED: ACETAMINOPHEN 1,000 MG/100 ML RTUPB IV ONE ×2 (22:41→23:00)
[2018-12-13 00:23] LABS: ANION GAP 12 (5-19); BLOOD UREA NITROGEN 33 mg/dL (7-20); CALCIUM 7.8 mg/dL (8.4-10.2); CARBON DIOXIDE 15 mmol/L (22-30); CHLORIDE 114 mmol/L (98-107); GLUCOSE 120 mg/dL (75-110); POTASSIUM 4.4 mmol/L (3.6-5.0)
[2018-12-13] MEDS: METRONIDAZOLE 500 MG/NS RTU 500 MG/100 ML RTUPB IV SCH ×3 (01:40→17:36)
[2018-12-13] MEDS: NORMAL SALINE 1000 ML 1,000 ML IV PRN ×5 (01:40→23:41)
[2018-12-13] MEDS ORDERED: MORPHINE SULFATE 60 MG/60 ML RTUINJ IV ONE (01:44)
[2018-12-13] MEDS: MORPHINE SULFATE 60 MG/60 ML RTUINJ IV PRN (01:56)
[2018-12-13] MEDS: ACETAMINOPHEN 1,000 MG/100 ML RTUPB IV SCH ×3 (05:10→21:45)
[2018-12-13 06:07] LABS: HEMATOCRIT 39.6 % (37.9-51.0); HEMOGLOBIN 12.9 g/dL (13.5-17.0); MEAN CORPUSCULAR HEMOGLOBIN 29.3 pg (27.0-33.4); MEAN CORPUSCULAR HGB CONC 32.6 g/dL (32.0-36.0); MEAN CORPUSCULAR VOLUME 90 fl (80-97); PLATELET COUNT 290 10^3/uL (150-450); RED BLOOD COUNT 4.41 10^6/uL (4.35-5.55); RED CELL DISTRIBUTION WIDTH 14.4 % (11.5-14.0)
[2018-12-13 06:23] LABS: ABSOLUTE LYMPHOCYTES# (MANUAL) 0.8 10^3/uL (0.5-4.7); ABSOLUTE MONOCYTES # (MANUAL) 0.8 10^3/uL (0.1-1.4); BAND NEUTROPHILS % (MANUAL) 3 % (3-5); BASOPHILS % (MANUAL) 0 % (0-2); EOSINOPHILS % (MANUAL) 0 % (0-6); LYMPHOCYTES % (MANUAL) 6 % (13-45); MONOCYTES % (MANUAL) 6 % (3-13); SEGMENTED NEUTROPHILS % (MAN) 85 % (42-78); TOTAL CELLS COUNTED 100
[2018-12-13 06:24] LABS: PLATELET CLUMPS PRESENT
[2018-12-13 06:25] LABS: ANION GAP 10 (5-19); ANISOCYTOSIS SLIGHT; BLOOD UREA NITROGEN 31 mg/dL (7-20); CARBON DIOXIDE 17 mmol/L (22-30); CHLORIDE 114 mmol/L (98-107); GLUCOSE 94 mg/dL (75-110); POTASSIUM 4.7 mmol/L (3.6-5.0)
[2018-12-13] MEDS: ENOXAPARIN SODIUM INJ 40 MG/0.4 ML DISP.SYRIN SUBCUT SCH (09:11)
[2018-12-13] MEDS: FAMOTIDINE INJ/PF 20 MG/2 ML SDV IV SCH ×2 (09:16→22:00)
[2018-12-13] MEDS ORDERED: DIPHENHYDRAMINE HCL 50 MG/ML VIAL IV ONE (11:30)
--- NOTE | 2018-12-13 11:34 | PDOC PROGRESS REPORT ---
Subjective Progress Note for:: 12/13/18 Subjective:: POD #1 for Aj's procedure for perforated sigmoid diverticulitis Less pains Reason For Visit: SIGMOID DIVERTICULITIS Physical Exam Vital Signs: Temp Pulse Resp BP Pulse Ox 97.5 F 77 16 114/71 98 12/13/18 10:58 12/13/18 10:58 12/13/18 10:58 12/13/18 10:58 12/13/18 11:18 Pulse Oximeter Continuous Start: 12/12/18 21: 40 Freq: RTQ4 Status: Active Protocol: Document 12/13/18 11:18 [facility] (Rec: 12/13/18 11:18 [facility] [id number]) Pulse Oximetry Assessment Oxygen Saturation (92-100) 98 Oxygen Flow Rate (L/min) 2 Oxygen Delivery Method Nasal Cannula Fraction of Inspired Oxygen (FIO2) 28 Equipment Usage Equipment in Use Continuous SpO2 Machine # 2 Intake & Output 12/12/18 12/13/18 12/14/18 06:59 06:59 06:59 Intake Total 6 9025 Output Total 8945 Balance 2 1688 Weight 87.5 kg 90.5 kg Exam: colostomy on the RLQ is viable. Incision dressings are dry NGT small amount of greenish fluid. Pulled out but will keep NPO today Results Laboratory Results: 12/13/18 05:20 12/13/18 05:20 12/12/18 12/12/18 12/13/18 19:01 23:58 05:20 WBC 14.0 H RBC 4.41 Hgb 12.9 L Hct 39.6 MCV 90 MCH 29.3 MCHC 32.6 RDW 14.4 H Plt Count 290 Seg Neutrophils % Not Reportable Lymphocytes % Not Reportable Monocytes % Not Reportable Eosinophils % Not Reportable Basophils % Not Reportable Absolute Neutrophils Not Reportable Absolute Lymphocytes Not Reportable Absolute Monocytes Not Reportable Absolute Eosinophils Not Reportable Absolute Basophils Not Reportable Sodium 141.0 Potassium 4.4 Chloride 114 H Carbon Dioxide 15 L Anion Gap 12 BUN 33 H Creatinine 2.94 H Est GFR ( Amer) 28 L Est GFR (Non-Af Amer) 23 L Glucose 120 H Calcium 7.8 L Blood Type O POSITIVE Antibody Screen NEGATIVE 12/13/18 05:20 WBC RBC Hgb Hct MCV MCH MCHC RDW Plt Count Seg Neutrophils % Lymphocytes % Monocytes % Eosinophils % Basophils % Absolute Neutrophils Absolute Lymphocytes Absolute Monocytes Absolute Eosinophils Absolute Basophils Sodium 140.8 Potassium 4.7 Chloride 114 H Carbon Dioxide 17 L Anion Gap 10 BUN 31 H Creatinine 2.94 H Est GFR ( Amer) 28 L Est GFR (Non-Af Amer) 23 L Glucose 94 Calcium 8.0 L Blood Type Antibody Screen Impressions: Abdomen/Pelvis CT 12/12/18 00:00 IMPRESSION: Intraperitoneal free air indicating perforation likely from sigmoid diverticular disease. Small amount of free fluid in the pelvis. Possible site of perforation along the medial sigmoid. Likely related to diverticulitis. Interval development of bilateral atelectasis and small effusions. Assessment & Plan - Diagnosis (1) Perforation of sigmoid colon due to diverticulitis Is this a current diagnosis for this admission?: Yes - Time Time Spent with patient: 15-24 minutes - Inpatient Certification Medical Necessity: Need For IV Fluids, Need for IV Antibiotics - Plan Summary Plan Summary: Continue NPO, off NGT Continue IVF Continue hydration Recheck labs in am
[2018-12-13 12:51] LABS: HEMATOCRIT 37.8 % (37.9-51.0); HEMOGLOBIN 12.5 g/dL (13.5-17.0); MEAN CORPUSCULAR HEMOGLOBIN 29.5 pg (27.0-33.4); MEAN CORPUSCULAR VOLUME 89 fl (80-97); PLATELET COUNT 304 10^3/uL (150-450); RED BLOOD COUNT 4.23 10^6/uL (4.35-5.55); RED CELL DISTRIBUTION WIDTH 14.9 % (11.5-14.0); WHITE BLOOD COUNT 13.8 10^3/uL (4.0-10.5)
[2018-12-13 13:21] LABS: ABSOLUTE MONOCYTES # (MANUAL) 0.7 10^3/uL (0.1-1.4); BASOPHILS % (MANUAL) 0 % (0-2); EOSINOPHILS % (MANUAL) 2 % (0-6); LYMPHOCYTES % (MANUAL) 7 % (13-45); MONOCYTES % (MANUAL) 5 % (3-13); SEGMENTED NEUTROPHILS % (MAN) 86 % (42-78); TOTAL CELLS COUNTED 100
[2018-12-13 13:22] LABS: ANISOCYTOSIS SLIGHT; PLATELET COMMENT ADEQUATE
[2018-12-13] MEDS: LEVOFLOXACIN 500 MG/D5W RTU 500 MG/100 ML RTUPB IV SCH (15:08)
[2018-12-14] MEDS: METRONIDAZOLE 500 MG/NS RTU 500 MG/100 ML RTUPB IV SCH ×3 (02:16→17:01)
[2018-12-14] MEDS: ACETAMINOPHEN 1,000 MG/100 ML RTUPB IV SCH ×3 (05:38→21:51)
[2018-12-14] MEDS: MORPHINE SULFATE 60 MG/60 ML RTUINJ IV PRN (06:49)
[2018-12-14 07:00] LABS: ANION GAP 9 (5-19); BLOOD UREA NITROGEN 33 mg/dL (7-20); CALCIUM 8.2 mg/dL (8.4-10.2); CARBON DIOXIDE 17 mmol/L (22-30); CHLORIDE 118 mmol/L (98-107); GLUCOSE 93 mg/dL (75-110); POTASSIUM 4.5 mmol/L (3.6-5.0)
[2018-12-14] MEDS: NORMAL SALINE 1000 ML 1,000 ML IV PRN ×2 (09:31→21:56)
[2018-12-14] MEDS: FAMOTIDINE INJ/PF 20 MG/2 ML SDV IV SCH ×2 (09:32→21:51)
[2018-12-14] MEDS: ENOXAPARIN SODIUM INJ 40 MG/0.4 ML DISP.SYRIN SUBCUT SCH (09:34)
--- NOTE | 2018-12-14 14:43 | PDOC PROGRESS REPORT ---
Subjective Progress Note for:: 12/14/18 Subjective:: mild incisional pains Reason For Visit: SIGMOID DIVERTICULITIS Physical Exam Vital Signs: Temp Pulse Resp BP Pulse Ox 98.2 F 72 16 134/83 H 97 12/14/18 10:52 12/14/18 10:52 12/14/18 12:50 12/14/18 10:52 12/14/18 12:50 Pulse Oximeter Continuous Start: 12/12/18 21:40 Freq: RTQ4 Status: Active Protocol: Document 12/14/18 12:31 [facility] [place] (Rec: 12/14/18 12:32 [facility] [place] [id number]) Pulse Oximetry Assessment Oxygen Saturation (92-100) 100 Oxygen Delivery Method Room Air Fraction of Inspired Oxygen (FIO2) 21 Equipment Usage Equipment in Use Continuous SpO2 Machine # N 2 Additional RT Notes Other pulse ox probe on right hand middle finger changed to right hand ring finger Intake & Output 12/13/18 12/14/18 12/15/18 06:59 06:59 06:59 Intake Total 9160 4923 100 Output Total 2375 1660 Balance 6785 3263 100 Weight 90.5 kg 94.8 kg Exam: abdomen is soft and non tender. Colostomy not functioning yet. ANNA drain decreased drainage and serosanguinous. Results Laboratory Results: 12/13/18 12:09 12/14/18 05:56 12/14/18 05:56 Sodium 144.2 Potassium 4.5 Chloride 118 H Carbon Dioxide 17 L Anion Gap 9 BUN 33 H Creatinine 2.82 H Est GFR ( Amer) 29 L Est GFR (Non-Af Amer) 24 L Glucose 93 Calcium 8.2 L Impressions: Abdomen/Pelvis CT 12/12/18 00:00 IMPRESSION: Intraperitoneal free air indicating perforation likely from sigmoid diverticular disease. Small amount of free fluid in the pelvis. Possible site of perforation along the medial sigmoid. Likely related to diverticulitis. Interval development of bilateral atelectasis and small effusions. Assessment & Plan - Diagnosis (1) Perforation of sigmoid colon due to diverticulitis Is this a current diagnosis for this admission?: Yes - Time Time Spent with patient: 15-24 minutes - Inpatient Certification Medical Necessity: Need Close Monitoring Due to Risk of Patient Decompensation, Need For IV Fluids, Need for IV Antibiotics - Plan Summary Plan Summary: This is hhis 1st to 2nd day post op(Aj's procedure) Will keep NPO except ice chips today Await function of colostomy prior to increasing diet Continue IV antibiotics
[2018-12-14] MEDS: LEVOFLOXACIN 500 MG/D5W RTU 500 MG/100 ML RTUPB IV SCH (15:41)
[2018-12-14] MEDS: ONDANSETRON HCL INJ/PF 4 MG/2 ML SDV IV PRN (19:59)
[2018-12-15] MEDS: METRONIDAZOLE 500 MG/NS RTU 500 MG/100 ML RTUPB IV SCH ×3 (02:18→18:27)
[2018-12-15] MEDS: ACETAMINOPHEN 1,000 MG/100 ML RTUPB IV SCH ×3 (05:19→23:06)
[2018-12-15] MEDS: NORMAL SALINE 1000 ML 1,000 ML IV PRN (09:06)
[2018-12-15] MEDS: ENOXAPARIN SODIUM INJ 40 MG/0.4 ML DISP.SYRIN SUBCUT SCH (09:10)
[2018-12-15] MEDS: FAMOTIDINE INJ/PF 20 MG/2 ML SDV IV SCH ×2 (09:10→23:06)
--- NOTE | 2018-12-15 12:23 | PDOC PROGRESS REPORT ---
Subjective Progress Note for:: 12/15/18 Subjective:: Feels well. Reason For Visit: SIGMOID DIVERTICULITIS Physical Exam Vital Signs: Temp Pulse Resp BP Pulse Ox 97.9 F 60 16 139/82 H 97 12/15/18 10:49 12/15/18 10:49 12/15/18 10:49 12/15/18 10:49 12/15/18 11:35 Pulse Oximeter Continuous Start: 12/12/18 21:40 Freq: RTQ4 Status: Active Protocol: Document 12/15/18 11:35 [facility] (Rec: 12/15/18 11:35 [facility] [id number]) Pulse Oximetry Assessment Oxygen Saturation (92-100) 97 Oxygen Delivery Method Room Air Fraction of Inspired Oxygen (FIO2) 21 Equipment Usage Equipment in Use Continuous SpO2 Machine # 2 Intake & Output 12/14/18 12/15/18 12/16/18 06:59 06:59 06:59 Intake Total 4923 3451 Output Total 1660 1100 Balance 3263 2351 Weight 94.8 kg 94.6 kg General appearance: PRESENT: no acute distress, cooperative Respiratory exam: PRESENT: clear to auscultation sowmya Cardiovascular exam: PRESENT: RRR GI/Abdominal exam: PRESENT: other - Soft, obese, wound clean dry and intact. Drain output is serosanguineous. Results Laboratory Results: 12/13/18 12:09 12/14/18 05:56 12/09/18 18:35 Blood Blood Culture - Final NO GROWTH IN 5 DAYS 12/09/18 12:00 Blood Blood Culture - Final NO GROWTH IN 5 DAYS Impressions: Abdomen/Pelvis CT 12/12/18 00:00 IMPRESSION: Intraperitoneal free air indicating perforation likely from sigmoid diverticular disease. Small amount of free fluid in the pelvis. Possible site of perforation along the medial sigmoid. Likely related to diverticulitis. Interval development of bilateral atelectasis and small effusions. Assessment & Plan - Diagnosis (1) Perforation of sigmoid colon due to diverticulitis Is this a current diagnosis for this admission?: Yes Plan: Status post sigmoidectomy with a diverting loop ileostomy. Ileostomy output is minimal. Will hold off diet for right now. We will DC his drain.
[2018-12-15] MEDS: MORPHINE SULFATE 60 MG/60 ML RTUINJ IV PRN (12:52)
[2018-12-15] MEDS: LEVOFLOXACIN 500 MG/D5W RTU 500 MG/100 ML RTUPB IV SCH (18:24)
[2018-12-15] MEDS: ONDANSETRON HCL INJ/PF 4 MG/2 ML SDV IV PRN (18:27)
[2018-12-16] MEDS: METRONIDAZOLE 500 MG/NS RTU 500 MG/100 ML RTUPB IV SCH ×3 (02:38→17:22)
--- NOTE | 2018-12-16 09:46 | PDOC PROGRESS REPORT ---
Subjective Progress Note for:: 12/16/18 Subjective:: feels better wants more to drink Reason For Visit: SIGMOID DIVERTICULITIS Physical Exam Vital Signs: Temp Pulse Resp BP Pulse Ox 97.8 F 49 L 14 135/81 H 98 12/15/18 20:20 12/15/18 20:20 12/15/18 20:20 12/15/18 20:20 12/15/18 20:20 Pulse Oximeter Continuous Start: 12/12/18 21:40 Freq: RTQ4 Status: Complete Protocol: Document 12/15/18 11:35 [facility] (Rec: 12/15/18 11:35 [facility] [id number]) Pulse Oximetry Assessment Oxygen Saturation (92-100) 97 Oxygen Delivery Method Room Air Fraction of Inspired Oxygen (FIO2) 21 Equipment Usage Equipment in Use Continuous SpO2 Machine # 2 Intake & Output 12/15/18 12/16/18 12/17/18 06:59 06:59 06:59 Intake Total 3451 2210 Output Total 1100 2160 200 Balance 2351 50 -200 Weight 94.6 kg 92 kg General appearance: PRESENT: no acute distress Head exam: PRESENT: normocephalic Eye exam: PRESENT: EOMI Mouth exam: PRESENT: moist Neck exam: PRESENT: full ROM Respiratory exam: PRESENT: clear to auscultation sowmya Cardiovascular exam: PRESENT: RRR Pulses: PRESENT: normal radial pulses, normal femoral pulses, +1 pedal pulses bilateral, +2 pedal pulses bilateral GI/Abdominal exam: PRESENT: distended, hypoactive bowel sounds - stoma functioning with stool and gas Rectal exam: PRESENT: deferred Extremities exam: PRESENT: full ROM Musculoskeletal exam: PRESENT: full ROM Neurological exam: PRESENT: alert, oriented to person, oriented to place Psychiatric exam: PRESENT: agitated, appropriate affect Skin exam: PRESENT: dry Results Laboratory Results: 12/13/18 12:09 12/14/18 05:56 Impressions: Abdomen/Pelvis CT 12/12/18 00:00 IMPRESSION: Intraperitoneal free air indicating perforation likely from sigmoid diverticular disease. Small amount of free fluid in the pelvis. Possible site of perforation along the medial sigmoid. Likely related to diverticulitis. Interval development of bilateral atelectasis and small effusions. Assessment & Plan - Plan Summary Plan Summary: s/p sigmoid colectomy with diverting ileostomy now with some return of bowel function howver still sl distended plan pt wants clear liquids ok since now with stool and flatus in bag increase ambulation today
[2018-12-16] MEDS: FAMOTIDINE INJ/PF 20 MG/2 ML SDV IV SCH ×2 (11:19→21:58)
[2018-12-16] MEDS: NORMAL SALINE 1000 ML 1,000 ML IV PRN (11:22)
[2018-12-16] MEDS: ENOXAPARIN SODIUM INJ 40 MG/0.4 ML DISP.SYRIN SUBCUT SCH (11:30)
[2018-12-16] MEDS: LEVOFLOXACIN 500 MG/D5W RTU 500 MG/100 ML RTUPB IV SCH (17:22)
[2018-12-16] MEDS: MORPHINE SULFATE 60 MG/60 ML RTUINJ IV PRN (19:18)
[2018-12-17] MEDS: METRONIDAZOLE 500 MG/NS RTU 500 MG/100 ML RTUPB IV SCH ×3 (02:21→17:39)
[2018-12-17] MEDS: NORMAL SALINE 1000 ML 1,000 ML IV PRN (02:21)
--- NOTE | 2018-12-17 09:04 | PDOC PROGRESS REPORT ---
Subjective Progress Note for:: 12/17/18 Subjective:: Feels well. Hungry. Reason For Visit: SIGMOID DIVERTICULITIS Physical Exam Vital Signs: Temp Pulse Resp BP Pulse Ox 97.3 F 48 L 16 155/87 H 100 12/16/18 23:32 12/16/18 23:32 12/16/18 23:32 12/16/18 23:32 12/16/18 23:32 Pulse Oximeter Continuous Start: 12/12/18 21:40 Freq: RTQ4 Status: Complete Protocol: Document 12/15/18 11:35 [facility] (Rec: 12/15/18 11:35 [facility] [id number]) Pulse Oximetry Assessment Oxygen Saturation (92-100) 97 Oxygen Delivery Method Room Air Fraction of Inspired Oxygen (FIO2) 21 Equipment Usage Equipment in Use Continuous SpO2 Machine # 2 Intake & Output 12/16/18 12/17/18 12/18/18 06:59 06:59 06:59 Intake Total 2310 1300 Output Total 2160 2000 Balance 150 -700 Weight 92 kg 92 kg General appearance: PRESENT: no acute distress, cooperative Respiratory exam: PRESENT: clear to auscultation sowmya Cardiovascular exam: PRESENT: RRR GI/Abdominal exam: PRESENT: other - Soft, nondistended, nontender to palpation. Wound clean dry and intact with horace. Patient is obese and there is some tension at the staple line. There is no erythema. Ostomy is functioning well with liquid output. Results Laboratory Results: 12/13/18 12:09 12/14/18 05:56 Impressions: Abdomen/Pelvis CT 12/12/18 00:00 IMPRESSION: Intraperitoneal free air indicating perforation likely from sigmoid diverticular disease. Small amount of free fluid in the pelvis. Possible site of perforation along the medial sigmoid. Likely related to diverticulitis. Interval development of bilateral atelectasis and small effusions. Assessment & Plan - Diagnosis (1) Perforation of sigmoid colon due to diverticulitis Is this a current diagnosis for this admission?: Yes Plan: Status post sigmoidectomy with a diverting loop ileostomy. Ostomy functioning well. Will advance diet. (2) Renal insufficiency Is this a current diagnosis for this admission?: Yes Plan: May have been related with his sepsis. We will repeat his Chem-7. Patient is voiding well. Will obtain nephrology consult.
[2018-12-17] MEDS: ENOXAPARIN SODIUM INJ 40 MG/0.4 ML DISP.SYRIN SUBCUT SCH (10:37)
[2018-12-17] MEDS: FAMOTIDINE INJ/PF 20 MG/2 ML SDV IV SCH ×2 (10:37→21:22)
[2018-12-17 10:56] LABS: ANION GAP 6 (5-19); BLOOD UREA NITROGEN 26 mg/dL (7-20); CALCIUM 9.4 mg/dL (8.4-10.2); CARBON DIOXIDE 23 mmol/L (22-30); CHLORIDE 121 mmol/L (98-107); GLUCOSE 111 mg/dL (75-110); POTASSIUM 4.9 mmol/L (3.6-5.0)
[2018-12-17] MEDS ORDERED: 1/2 NORMAL SALINE 1,000 ML IV PRN (14:46)
--- NOTE | 2018-12-17 14:47 | PDOC CONSULTATION ---
Consultation Consult Date: 12/17/18 Provider Consulted: Reagan DOUGHERTY Consult reason:: renal insufficiency History of Present Illness Admission Date/PCP: 12/09/18 11:55 LAURA STONE MD History of Present Illness: JO ANN COTO is a 48 year old male came to the ER after having 3 days worth of bilateral lower quadrant abdominal pain that had gotten worse. He was seen by Dr. Eason who diagnosed him with diverticulitis. He was started on zosyn and given toradol for pain. A CT of the abdomen was done that showed a perforation of the colon from the diverticulitis. This required surgery and a colostomy bag placement. A couple days into the stay at the hospital the creatinine elevated up and peaked at 3.1. When it peaked at 3.1 the Zosyn and toradol were removed. He has been on continous IV fluids and the creatinine has started to trend down. Today it was 2.2 and the urine out put has increased to around 2,000mL per a day. Today he was seen sitting on the edge of his bed. He is ready to go home but is willing to stay until he is healthy. He currently is struggling with managing his colostomy bag. He denies chest pain, SOB, N/V. He denies current fevers or chills. Past Medical History GI Medical History: Reports: Gastroesophageal Reflux Disease Psychiatric Medical History: Denies: Depression Past Surgical History Past Surgical History: Reports: Colostomy Social History Smoking Status: Former Smoker Frequency of Alcohol Use: None Hx Recreational Drug Use: No Drugs: None Hx Prescription Drug Abuse: No - Advance Directive Resuscitation Status: Full Code Family History Parental Family History Reviewed: Yes Children Family History Reviewed: Unknown Sibling(s) Family History Reviewed.: Unknown Medication/Allergy Home Medications: No Home Medications 12/09/18 Allergies/Adverse Reactions: No Known Allergies Allergy (Verified 09/04/16 08:32) Review of Systems Constitutional: PRESENT: chills, fever(s). ABSENT: anorexia, fatigue, weakness Nose, Mouth, and Throat: ABSENT: headache(s) Cardiovascular: ABSENT: chest pain, dyspnea on exertion, edema, orthropnea, palpitations Respiratory: ABSENT: cough, dyspnea, sputum Gastrointestinal: PRESENT: abdominal pain, diarrhea. ABSENT: constipation, nausea, vomiting Genitourinary: ABSENT: difficulty urinating, dysuria Musculoskeletal: ABSENT: joint swelling, muscle weakness Neurological: ABSENT: focal weakness, numbness, weakness Physical Exam Vital Signs: Temp Pulse Resp BP Pulse Ox 97.8 F 46 L 14 146/85 H 99 12/17/18 11:20 12/17/18 11:20 12/17/18 11:20 12/17/18 11:20 12/17/18 11:20 Pulse Oximeter Continuous Start: 12/12/18 21:40 Freq: RTQ4 Status: Complete Protocol: Document 12/15/18 11:35 [facility] (Rec: 12/15/18 11:35 [facility] [id number]) Pulse Oximetry Assessment Oxygen Saturation (92-100) 97 Oxygen Delivery Method Room Air Fraction of Inspired Oxygen (FIO2) 21 Equipment Usage Equipment in Use Continuous SpO2 Machine # 2 Intake & Output 12/16/18 12/17/18 12/18/18 06:59 06:59 06:59 Intake Total 2310 1400 Output Total 2160 2000 Balance 150 -600 Weight 92 kg 92 kg 92 kg General appearance: PRESENT: no acute distress, well-developed, well-nourished Mouth exam: PRESENT: moist. ABSENT: dry mucosa Neck exam: ABSENT: JVD, tracheal deviation Respiratory exam: PRESENT: clear to auscultation sowmya. ABSENT: accessory muscle use, crackles, rales, rhonchi, wheezes Cardiovascular exam: PRESENT: RRR, +S1, +S2 GI/Abdominal exam: PRESENT: guarding, tenderness Extremities exam: ABSENT: pedal edema, tenderness, +1 edema, +2 edema Musculoskeletal exam: PRESENT: normal inspection. ABSENT: tenderness Neurological exam: PRESENT: alert, awake, oriented to person, oriented to place, oriented to time, oriented to situation Psychiatric exam: PRESENT: appropriate affect, normal mood Skin exam: PRESENT: dry, intact, warm Results Laboratory Results: 12/13/18 12:09 12/17/18 10:02 12/17/18 10:02 Sodium 150.4 H Potassium 4.9 Chloride 121 H Carbon Dioxide 23 Anion Gap 6 BUN 26 H Creatinine 2.26 H Est GFR ( Amer) 37 L Est GFR (Non-Af Amer) 31 L Glucose 111 H Calcium 9.4 Impressions: Abdomen/Pelvis CT 12/12/18 00:00 IMPRESSION: Intraperitoneal free air indicating perforation likely from sigmoid diverticular disease. Small amount of free fluid in the pelvis. Possible site of perforation along the medial sigmoid. Likely related to diverticulitis. Interval development of bilateral atelectasis and small effusions. Assessment & Plan - Diagnosis (1) Perforation of sigmoid colon due to diverticulitis Is this a current diagnosis for this admission?: Yes Plan: per surgery (2) Renal insufficiency Is this a current diagnosis for this admission?: Yes Plan: nonoliguric, due to possible AIN from the Zosyn, other factors include ATN from the current infection and the use of toradol. At this point continue with IV fluids, but will look to switch them to 1/2 NS due to the hypernatremia. Recommend at least one more day in the hospital to trend the creatinine. If it comes down with tomorrows BMP then he can be discharged from nephrology's sta ndpoint. Follow up after discharge 7 to 10 days post. (3) Hypernatremia Plan: switching to 1/2NS - Notes Notes: case was discussed with Dr. Dougherty.
[2018-12-17] MEDS: LEVOFLOXACIN 500 MG/D5W RTU 500 MG/100 ML RTUPB IV SCH (18:48)
[2018-12-18] MEDS: METRONIDAZOLE 500 MG/NS RTU 500 MG/100 ML RTUPB IV SCH ×2 (01:23→11:07)
[2018-12-18] MEDS: MORPHINE SULFATE 60 MG/60 ML RTUINJ IV PRN (01:27)
[2018-12-18 06:48] LABS: ANION GAP 8 (5-19); BLOOD UREA NITROGEN 25 mg/dL (7-20); CALCIUM 9.2 mg/dL (8.4-10.2); CARBON DIOXIDE 20 mmol/L (22-30); CHLORIDE 121 mmol/L (98-107); GLUCOSE 90 mg/dL (75-110); POTASSIUM 4.7 mmol/L (3.6-5.0)
--- NOTE | 2018-12-18 09:02 | PDOC DISCHARGE SUMMARY ---
General - Admit/Disc Date/PCP Admission Date/Primary Care Provider: 12/09/18 11:55 LAURA STONE MD Discharge Date: 12/18/18 - Discharge Diagnosis (1) Perforation of sigmoid colon due to diverticulitis Is this a current diagnosis for this admission?: Yes - Additional Information Resuscitation Status: Full Code Discharge Diet: As Tolerated Discharge Activity: No Lifting Over 10 Pounds Home Medications: No Home Medications 12/09/18 History of Present Illness History of Present Illness: JO ANN COTO is a 48 year old male admitted with perforated diverticulitis taken to operating room for sigmoid colectomy has has a fairly uncomplicataed post op course except for increased creat, has been seen by nephrology and creat has been slowely decreaseing pt now imer reg diet has had return of bowel function creat has stablized and he is ready for dc home will f/u with his primary physician and with nephrology. will also f/u with surgery next wk for staple removal no dc meds. Physical Exam Vital Signs: Temp Pulse Resp BP Pulse Ox 97.9 F 50 L 18 167/81 H 99 12/17/18 23:46 12/17/18 23:46 12/18/18 07:03 12/17/18 23:46 12/17/18 23:46 Pulse Oximeter Continuous Start: 12/12/18 21:40 Freq: RTQ4 Status: Complete Protocol: Document 12/15/18 11:35 [facility] (Rec: 12/15/18 11:35 [facility] [id number]) Pulse Oximetry Assessment Oxygen Saturation (92-100) 97 Oxygen Delivery Method Room Air Fraction of Inspired Oxygen (FIO2) 21 Equipment Usage Equipment in Use Continuous SpO2 Machine # 2 Intake & Output 12/17/18 12/18/18 12/19/18 06:59 06:59 06:59 Intake Total 1400 1756 Output Total 1999 3150 Balance -600 -1394 Weight 92 kg 93.8 kg General appearance: PRESENT: no acute distress Head exam: PRESENT: normocephalic Eye exam: PRESENT: EOMI Ear exam: PRESENT: normal external ear exam Mouth exam: PRESENT: moist Neck exam: PRESENT: full ROM Respiratory exam: PRESENT: clear to auscultation sowmya Cardiovascular exam: PRESENT: RRR Pulses: PRESENT: normal radial pulses, normal femoral pulses GI/Abdominal exam: PRESENT: soft Rectal exam: PRESENT: deferred Extremities exam: PRESENT: full ROM Musculoskeletal exam: PRESENT: full ROM Neurological exam: PRESENT: alert, awake, oriented to person, oriented to place Psychiatric exam: PRESENT: appropriate affect Skin exam: PRESENT: dry Results Laboratory Results: 12/13/18 12:09 12/18/18 05:52 12/17/18 12/18/18 10:02 05:52 Sodium 150.4 H 148.6 H Potassium 4.9 4.7 Chloride 121 H 121 H Carbon Dioxide 23 20 L Anion Gap 6 8 BUN 26 H 25 H Creatinine 2.26 H 2.21 H Est GFR ( Amer) 37 L 38 L Est GFR (Non-Af Amer) 31 L 32 L Glucose 111 H 90 Calcium 9.4 9.2 Impressions: Abdomen/Pelvis CT 12/12/18 00:00 IMPRESSION: Intraperitoneal free air indicating perforation likely from sigmoid diverticular disease. Small amount of free fluid in the pelvis. Possible site of perforation along the medial sigmoid. Likely related to diverticulitis. Interval development of bilateral atelectasis and small effusions. Qualifiers - * PATIENT BEING DISCHARGED WITH ANY OF THE FOLLOWING DIAGNOSIS: No Reason(s) for not prescribing Overlap Therapy:: Not indicated Reason(s) for not prescribing Anti-thrombolytic therapy:: Not indicated Reason(s) for not prescribing Anti-coagulation therapy:: Not indicated Reason(s) for not prescribing Statins therapy:: Not indicated Reason(s) for not prescribing Aspirin therapy:: Not indicated Reason(s) for not prescribing Statin therapy:: Not indicated Reason(s) for not prescribing ACEI/ARBS:: Compl of medication care, Not indicated Acute Heart Failure - Is this a Heart Failure Patient?: No Plan Time Spent: Less than 30 Minutes - pt needs a f/u appoint with nephrology, his primary physician in 1 wk and with surgery clinic in a week.
[2018-12-18 09:12] VITALS: BP 143/79
[2018-12-18] MEDS: FAMOTIDINE INJ/PF 20 MG/2 ML SDV IV SCH (11:07)
[2018-12-18] MEDS: ENOXAPARIN SODIUM INJ 40 MG/0.4 ML DISP.SYRIN SUBCUT SCH (11:07)
== END 2018-12-18 11:10 | disposition home or self-care (01) | DRG 330 ==
LOC: ER 08:44 → EH 11:55 → 5 17:40
PROVIDERS: ADMIT Surgery; ATTEND Surgery
PROC: 0D1B0Z4 Bypass Ileum to Cutaneous, Open Approach (ICD-10-PCS; 2018-12-12)
PROC: 0DTJ0ZZ Resection of Appendix, Open Approach (ICD-10-PCS; 2018-12-12)
PROC: 0HB7XZZ Excision of Abdomen Skin, External Approach (ICD-10-PCS; 2018-12-12)
PROC: 0DTN0ZZ Resection of Sigmoid Colon, Open Approach (ICD-10-PCS; principal; 2018-12-12 18:30)
DX: K57.20 Diverticulitis of large intestine with perforation and abscess without bleeding (principal); E87.0 Hyperosmolality and hypernatremia; K21.9 Gastro-esophageal reflux disease without esophagitis; I10 Essential (primary) hypertension; L91.8 Other hypertrophic disorders of the skin; N28.9 Disorder of kidney and ureter, unspecified; Z87.891 Personal history of nicotine dependence
CPT/HCPCS: 36415; 74176; 80048; 80053; 81001; 840; 85025; 86850; 86900; 86901; 87040; 88304; 88305; 88307; 94762; 96365; 96375; 99285; J0131; J0330; J1100; J1170; J1650; J1885; J1956; J2250; J2270; J2405; J2543; J2704; J2710; J3010; J3490; J7030; J7050; S0028

== ENCOUNTER → 2019-02-17 | Outpatient (CLI) | payer SELFPAY ==
--- NOTE | 2019-02-17 12:50 | RADIOLOGY REPORT (SQ) ---
EXAM DESCRIPTION: BARIUM ENEMA COMPLETED DATE/TIME: 02/17/2019 11:46 am REASON FOR STUDY: K57.92 DIVERTICULITIS OF INTESTINE, PART UNSPECIFIED, WITHOUT PERFORATION O Z93.2 ILEOSTOMY STATUS K57.92 DVTRCLI OF INTEST, PART UNSP, W/O PERF OR ABSCESS W/O COMPARISON: None. FLUOROSCOPY TIME: 1.3 minutes of fluoroscopy was used. 17 images saved to PACS. TECHNIQUE: Following retrograde filling of the colon with water soluble contrast, fluoroscopic spot and overhead imaging of the colon was obtained and saved to PACS. LIMITATIONS: None. FINDINGS: WINDOWS SERVER SUPPORT TECHNICIAN KUB: Non obstructive bowel gas pattern. Surgical sutures are seen low in the pelvis overlying the sacrum. CECUM: Normal cecum. Appendix surgically absent. Reflux contrast into the terminal ileum. ASCENDING COLON: No masses, strictures, or perforations. TRANSVERSE COLON: No masses, strictures, or perforations. DESCENDING COLON: No masses, strictures, or perforations. SIGMOID COLON: Postsurgical changes with anastomosis visualized. There is mild narrowing in the area s surgical sutures without evidence of obstruction, extravasation, or leak. RECTUM: No masses, strictures, or perforations. POST EVAC: Partial evacuation of contrast. OTHER: No other significant finding. IMPRESSION: POSTOPERATIVE CHANGES SEEN IN THE REGION OF THE SIGMOID COLON WITH PATENT ANASTOMOSIS AL THOUGH MILDLY NARROWED. NO EXTRAVASATION OR LEAK. COMMENT: Quality ID 145: Final reports for procedures using fluoroscopy that document radiation exp osure indices, or exposure time and number of fluorographic images (if radiation exposure indices are not available) TECHNICAL DOCUMENTATION: JOB ID: [id number] [employer]- All Rights Reserved Reading location - IP/workstation name: [email or web address]
== END ==
LOC: RAD 10:08
PROVIDERS: ATTEND Surgery
DX: K57.92 Diverticulitis of intestine, part unspecified, without perforation or abscess without bleeding (principal); Z93.2 Ileostomy status
CPT/HCPCS: 74270

== ENCOUNTER 2019-03-15 06:50 | Inpatient (IN) | payer OTHER ==
[2019-03-08 10:20] LABS: HEMATOCRIT 40.4 % (37.9-51.0); HEMOGLOBIN 13.6 g/dL (13.5-17.0); MEAN CORPUSCULAR HEMOGLOBIN 29.5 pg (27.0-33.4); MEAN CORPUSCULAR HGB CONC 33.6 g/dL (32.0-36.0); MEAN CORPUSCULAR VOLUME 88 fl (80-97); PLATELET COUNT 327 10^3/uL (150-450); RED CELL DISTRIBUTION WIDTH 14.6 % (11.5-14.0); WHITE BLOOD COUNT 5.4 10^3/uL (4.0-10.5)
[2019-03-08 10:46] LABS: ANION GAP 11 (5-19); BLOOD UREA NITROGEN 14 mg/dL (7-20); CALCIUM 10.2 mg/dL (8.4-10.2); CARBON DIOXIDE 25 mmol/L (22-30); CHLORIDE 104 mmol/L (98-107); GLUCOSE 86 mg/dL (75-110)
--- NOTE | 2019-03-08 11:25 | RADIOLOGY REPORT (SQ) ---
EXAM DESCRIPTION: CHEST PA/LATERAL COMPLETED DATE/TIME: 03/08/2019 10:40 am REASON FOR STUDY: COUGH,PRE-OP COMPARISON: 10/10/2016 EXAM PARAMETERS: NUMBER OF VIEWS: two views TECHNIQUE: Digital Frontal and Lateral radiographic views of the chest acquired. RADIATION DOSE: NA LIMITATIONS: none FINDINGS: LUNGS AND PLEURA: No opacities, masses or pneumothorax. No pleural effusion. MEDIASTINUM AND HILAR STRUCTURES: No masses or contour abnormalities. HEART AND VASCULAR STRUCTURES: Heart normal size. No evidence for failure. BONES: No acute findings. HARDWARE: None in the chest. OTHER: No other significant finding. IMPRESSION: NO SIGNIFICANT RADIOGRAPHIC FINDING IN THE CHEST. TECHNICAL DOCUMENTATION: JOB ID: [id number] [employer]- All Rights Reserved Reading location - IP/workstation name: [email or web address]
--- NOTE | 2019-03-08 16:55 | EKG REPORT ---
SEVERITY:- NORMAL ECG - SINUS RHYTHM : Confirmed by: Anita Pederson MD 08-Mar-2019 16:55:04
[~2019-03-15 06:50] MED LIST: ACETAMINOPHEN 325 MG TABLET PO PRN; CEFOXITIN SODIUM 2 GM in DEXTROSE 5%-WATER 100 ML IV PRN; IBUPROFEN 800 MG in NORMAL SALINE 250 ML IV PRN; LACTATED RINGERS 1000 ML IV PRN; LIDOCAINE 0.5% INJ-PF (5 MG/ML) 50 ML SDV SUBCUT PRN
[2019-03-15] MEDS ORDERED: ACETAMINOPHEN 325 MG TABLET ONE (07:17)
[2019-03-15] MEDS ORDERED: PROPOFOL INJ 200 MG/20 ML VIAL IV ONE (09:33)
[2019-03-15] MEDS ORDERED: MIDAZOLAM 2 MG/2 ML INJ ONE (09:33)
[2019-03-15] MEDS ORDERED: FENTANYL CITRATE INJ/PF 100 MCG/2 ML AMPUL ONE ×2 (09:33→09:53)
[2019-03-15] MEDS ORDERED: BUPIVACAINE HCL 0.25 % INJ/PF (2.5 MG/1 ML) 30 ML VIAL ONE (09:49)
[2019-03-15] MEDS ORDERED: DEXAMETHASONE SOD PHOSPHATE INJ 4 MG/1 ML VIAL ONE (10:05)
[2019-03-15] MEDS ORDERED: LIDOCAINE 2% INJ-PF (20 MG/ML) 2 ML AMPUL ONE (10:05)
[2019-03-15] MEDS ORDERED: SUCCINYLCHOLINE CHLORIDE INJ 200 MG/10 ML VIAL ONE (10:05)
[2019-03-15] MEDS ORDERED: ONDANSETRON HCL INJ/PF 4 MG/2 ML SDV ONE (10:05)
[2019-03-15] MEDS ORDERED: FENTANYL CITRATE INJ/PF 100 MCG/2 ML AMPUL IV PRN ×3 (10:06)
[2019-03-15] MEDS ORDERED: MEPERIDINE HCL/PF INJ 25 MG/1 ML DISP.SYRIN IV PRN (10:06)
[2019-03-15] MEDS ORDERED: PROMETHAZINE HCL INJ 25 MG/1 ML VIAL IV PRN (10:06)
[2019-03-15] MEDS ORDERED: DIPHENHYDRAMINE HCL 50 MG/ML VIAL IV PRN (10:06)
[2019-03-15] MEDS ORDERED: MORPHINE SULFATE 10 MG/ML INJ IV PRN (10:06)
[2019-03-15] MEDS ORDERED: ONDANSETRON HCL INJ/PF 4 MG/2 ML SDV IV PRN ×2 (11:40→15:30)
[2019-03-15] MEDS ORDERED: MEPERIDINE HCL/PF INJ 25 MG/1 ML DISP.SYRIN ONE (11:45)
--- NOTE | 2019-03-15 11:58 | Operative Report ---
Nonrecallable Operative Report DATE OF SURGERY: 03/15/19 PREOPERATIVE DIAGNOSIS: 1. Unwanted ileostomy. 2. History of severe, perforated diverticulitis. POSTOPERATIVE DIAGNOSIS: Same as above OPERATION: Reversal of ileostomy through right lower quadrant incision. SURGEON: OLIVER MADISON AUTOMATIC BUFFER: CARMITA VU ANESTHESIA: GA TISSUE REMOVED OR ALTERED: Portion of ileostomy COMPLICATIONS: None apparent ESTIMATED BLOOD LOSS: 20 cc PROCEDURE: Drains/implants: Xeroform gauze in right lower quadrant incision. Procedure in detail: After informed consent was obtained, the patient was brought to the operating room and laid in the supine position. The right lower quadrant ileostomy was closed using 0 silk suture in running, locking fashion. The area of the abdomen was prepped and draped in a normal sterile fashion. An elliptical incision was created around the ileostomy using a 15 blade scalpel. Dissection was carried through the subcutaneous tissues using a mixture of sharp dissection and electrocautery. Once the fascia was identified, the small bowel was carefully teased away from the fascial edge. The abdomen was then entered. There were adhesions of the small bowel to the anterior abdominal wall. These were taken down in a limited fashion. This was done with great care, so as not to injure the small intestine. Next, a side to side, stapled anastomosis was created between the 2 limbs of the ileostomy. This was done with a LISA-75 stapler. The resulting defect was then closed, also using the LISA-75 stapler with blue loads. 2 crotch stitches of 3-0 Vicryl were placed. The anastomosis was then tested. It was found to be free of any leakage of air or liquid. Once this was confirmed, the small bowel anastomosis was returned to the abdominal cavity. The defect was small, and a buttressing mesh was felt unnecessary. The posterior layer was closed using #1 Vicryl suture in simple running fashion. The overlying anterior layers were closed using #1 Prolene suture in [id number] fashion. A Xeroform gauze was placed into the base of the wound, and the wound was closed over the top of the Xeroform gauze with skin horace. A dressing was then placed, and the procedure was concluded. All sponge, instrument, needle counts were correct x2. Condition: Stable. Carmita Vu PA-C was scrubbed and present the entirety the procedure. She assisted with all portions of the procedure including opening of the skin, dissection of the ileostomy, creation of the small bowel anastomosis, closure of the fascia, and closure of the skin.
[2019-03-15] MEDS ORDERED: KETOROLAC TROMETHAMINE INJ/PF 30 MG/1 ML SDV ONE (12:24)
[2019-03-15] MEDS: MORPHINE SULFATE 10 MG/ML INJ IV PRN ×2 (13:09→17:36)
[2019-03-15] MEDS: KETOROLAC TROMETHAMINE INJ/PF 30 MG/1 ML SDV IV SCH ×2 (13:15→21:41)
[2019-03-15] MEDS: DEXTROSE 5%-LACTATED RINGERS 1,000 ML IV PRN (15:40)
[2019-03-15] MEDS: DOCUSATE SODIUM 100 MG CAPSULE PO SCH (17:37)
[2019-03-15] MEDS: CEFOXITIN SODIUM 2 GM in DEXTROSE 5%-WATER 100 ML IV SCH ×2 (17:38→21:40)
[2019-03-15] MEDS: HYDROCODONE/ACETAMINOPHEN 10-325 MG TABLET PO PRN (21:40)
[2019-03-15] MEDS: FAMOTIDINE INJ/PF 20 MG/2 ML SDV IV SCH (21:41)
[2019-03-16] MEDS: DEXTROSE 5%-LACTATED RINGERS 1,000 ML IV PRN (03:16)
[2019-03-16 05:10] LABS: HEMATOCRIT 33.4 % (37.9-51.0); HEMOGLOBIN 11.1 g/dL (13.5-17.0); MEAN CORPUSCULAR HEMOGLOBIN 29.4 pg (27.0-33.4); MEAN CORPUSCULAR HGB CONC 33.3 g/dL (32.0-36.0); MEAN CORPUSCULAR VOLUME 88 fl (80-97); PLATELET COUNT 277 10^3/uL (150-450); RED BLOOD COUNT 3.79 10^6/uL (4.35-5.55); RED CELL DISTRIBUTION WIDTH 14.9 % (11.5-14.0); WHITE BLOOD COUNT 10.8 10^3/uL (4.0-10.5)
[2019-03-16 05:27] LABS: ANION GAP 6 (5-19); BLOOD UREA NITROGEN 12 mg/dL (7-20); CALCIUM 9.1 mg/dL (8.4-10.2); CARBON DIOXIDE 26 mmol/L (22-30); CHLORIDE 104 mmol/L (98-107); GLUCOSE 95 mg/dL (75-110); POTASSIUM 4.2 mmol/L (3.6-5.0)
[2019-03-16] MEDS: KETOROLAC TROMETHAMINE INJ/PF 30 MG/1 ML SDV IV SCH ×3 (05:38→22:54)
[2019-03-16] MEDS: MORPHINE SULFATE 10 MG/ML INJ IV PRN ×2 (08:05→20:33)
[2019-03-16] MEDS: DOCUSATE SODIUM 100 MG CAPSULE PO SCH ×2 (09:50→17:25)
[2019-03-16] MEDS: FAMOTIDINE INJ/PF 20 MG/2 ML SDV IV SCH (09:50)
--- NOTE | 2019-03-16 12:46 | PDOC PROGRESS REPORT ---
Subjective Progress Note for:: 03/16/19 Reason For Visit: UNWANTED ILEOSTOMY,H/O DIVERTICULITIS Physical Exam Vital Signs: Temp Pulse Resp BP Pulse Ox 97.4 F 58 L 16 104/70 100 03/16/19 10:58 03/16/19 10:58 03/16/19 10:58 03/16/19 10:58 03/16/19 10:58 Intake & Output 03/15/19 03/16/19 03/17/19 06:59 06:59 06:59 Intake Total 3063 Output Total 880 Balance 2183 Weight 78.1 kg Results Laboratory Results: 03/16/19 04:17 03/16/19 04:17 03/16/19 03/16/19 04:17 04:17 WBC 10.8 H RBC 3.79 L Hgb 11.1 L Hct 33.4 L MCV 88 MCH 29.4 MCHC 33.3 RDW 14.9 H Plt Count 277 Sodium 136.2 L Potassium 4.2 Chloride 104 Carbon Dioxide 26 Anion Gap 6 BUN 12 Creatinine 1.16 Est GFR ( Amer) > 60 Glucose 95 Calcium 9.1 Impressions: Chest X-Ray 03/08/19 00:00 IMPRESSION: NO SIGNIFICANT RADIOGRAPHIC FINDING IN THE CHEST. Assessment & Plan - Diagnosis (1) Ileostomy in place Is this a current diagnosis for this admission?: Yes (2) History of diverticulitis of colon Is this a current diagnosis for this admission?: Yes - Time Time Spent with patient: Less than 15 minutes - Plan Summary Plan Summary: This is a 48-year-old male status post ileostomy reversal. The patient is doing well today. He denies any nausea or vomiting. He is tolerating liquids. He denies any flatus at this time. I have encouraged him to get out of bed and walk today. He should use his incentive spirometer 10 times every hour that he is awake. When the patient begins passing flatus, I will advance his diet. I will continue to follow very closely.
[2019-03-16] MEDS: FAMOTIDINE 20 MG TABLET PO SCH (22:54)
[2019-03-17] MEDS: MORPHINE SULFATE 10 MG/ML INJ IV PRN (02:31)
[2019-03-17] MEDS: KETOROLAC TROMETHAMINE INJ/PF 30 MG/1 ML SDV IV SCH ×2 (06:34→13:15)
[2019-03-17] MEDS: HYDROCODONE/ACETAMINOPHEN 10-325 MG TABLET PO PRN (06:37)
[2019-03-17] MEDS: FAMOTIDINE 20 MG TABLET PO SCH (09:36)
[2019-03-17] MEDS: DOCUSATE SODIUM 100 MG CAPSULE PO SCH (09:36)
--- NOTE | 2019-03-17 14:53 | PDOC DISCHARGE SUMMARY ---
General - Admit/Disc Date/PCP Admission Date/Primary Care Provider: 03/15/19 06:50 LAURA STONE MD Discharge Date: 03/17/19 - Discharge Diagnosis Final Diagnosis: History of perforated diverticulitis. Unwanted ileostomy. - Assessment Summary: This is a 48-year-old male who was admitted to the hospital for ileostomy reversal. The patient underwent ileostomy reversal on 03/15/2019. The patient was taken to the floor in stable condition. Over the subsequent 2 days his bowel function has returned, he is eating, he is afebrile, and his vitals are stable. The patient has been ambulating and is comfortable with taking oral pain meds. By postoperative day #2, it was felt that the patient had reached maximal hospital benefit, and was fit for discharge. Discharge instructions. Discharge home. Diet as tolerated. Activity: No lifting or than 10 pounds x 6 weeks after surgery. Follow-up with me in 7 to 10 days at [place] [facility]. Sumner 10/325 mg p.o. every 6 hours as needed for pain. Ibuprofen 800 mg p.o. 3 times daily with meals. - Additional Information Resuscitation Status: Full Code Discharge Diet: As Tolerated Discharge Activity: Balance Activity w/Rest, No Lifting Over 10 Pounds, No Lifting/Push/Pulling Referrals: OLIVER BENSON MD [ACTIVE STAFF] - 03/24/19 1:00 pm Home Medications: Diphenoxylate HCl/Atropine [Lomotil Tablet] 1 tab PO BID 03/04/19 Famotidine [Pepcid] 20 mg PO DAILY PRN 03/15/19 History of Present Illiness History of Present Illness: JO ANN COTO is a 48 year old male Physical Exam Vital Signs: Temp Pulse Resp BP Pulse Ox 97.9 F 67 16 102/60 100 03/17/19 00:00 03/17/19 00:00 03/17/19 00:00 03/17/19 00:00 03/17/19 00:00 Intake & Output 03/16/19 03/17/19 03/18/19 06:59 06:59 06:59 Intake Total 3063 2243 Output Total 880 600 Balance 2183 1643 Weight 78.1 kg 79.2 kg Results Laboratory Results: WBC 10.8 10^3/uL (4.0-10.5) H 03/16/19 04:17 RBC 3.79 10^6/uL (4.35-5.55) L 03/16/19 04:17 Hgb 11.1 g/dL (13.5-17.0) L 03/16/19 04:17 Hct 33.4 % (37.9-51.0) L 03/16/19 04:17 MCV 88 fl (80-97) 03/16/19 04:17 MCH 29.4 pg (27.0-33.4) 03/16/19 04:17 MCHC 33.3 g/dL (32.0-36.0) 03/16/19 04:17 RDW 14.9 % (11.5-14.0) H 03/16/19 04:17 Plt Count 277 10^3/uL (150-450) 03/16/19 04:17 Sodium 136.2 mmol/L (137-145) L 03/16/19 04:17 Potassium 4.2 mmol/L (3.6-5.0) 03/16/19 04:17 Chloride 104 mmol/L (98-107) 03/16/19 04:17 Carbon Dioxide 26 mmol/L (22-30) 03/16/19 04:17 Anion Gap 6 (5-19) 03/16/19 04:17 BUN 12 mg/dL (7-20) 03/16/19 04:17 Creatinine 1.16 mg/dL (0.52-1.25) 03/16/19 04:17 Est GFR ( Amer) > 60 (>60) 03/16/19 04:17 Est GFR (MDRD) Non-Af > 60 (>60) 03/16/19 04:17 Glucose 95 mg/dL (75-110) 03/16/19 04:17 Calcium 9.1 mg/dL (8.4-10.2) 03/16/19 04:17 Impressions: Chest X-Ray 03/08/19 00:00 IMPRESSION: NO SIGNIFICANT RADIOGRAPHIC FINDING IN THE CHEST.
[2019-03-17 16:41] VITALS: BP 118/86
== END 2019-03-17 17:25 | disposition home or self-care (01) | DRG 331 ==
LOC: INOR 06:50 → 4N 12:47
PROVIDERS: ADMIT Surgery; ATTEND Surgery
PROC: 0DBB0ZZ Excision of Ileum, Open Approach (ICD-10-PCS; principal; 2019-03-15 09:00)
DX: Z43.2 Encounter for attention to ileostomy (principal); Z87.19 Personal history of other diseases of the digestive system
CPT/HCPCS: 36415; 71046; 80048; 840; 85027; 93005; 93010; 94799; J0330; J0694; J1100; J1741; J1885; J2175; J2250; J2270; J2405; J2704; J3010; J3490; J7050; J7060; J7120; J7121; S0028

== ENCOUNTER 2019-03-17 23:54 | Emergency (ER) | payer OTHER ==
[2019-03-18] MEDS ORDERED: ONDANSETRON 4 MG TAB.RAPDIS PO ONE (00:11)
[2019-03-18 00:50] LABS: ABSOLUTE EOSINOPHILS # (AUTO) 0.1 10^3/uL (0.0-0.6); ABSOLUTE LYMPHOCYTES (AUTO) 1.2 10^3/uL (0.5-4.7); ABSOLUTE MONOCYTES (AUTO) 0.7 10^3/uL (0.1-1.4); ABSOLUTE NEUT (AUTO) 7.4 10^3/uL (1.7-8.2); BASOPHILS % (AUTO) 0.3 % (0-2); EOSINOPHILS % (AUTO) 0.8 % (0-6); HEMATOCRIT 35.2 % (37.9-51.0); HEMOGLOBIN 12.1 g/dL (13.5-17.0); LYMPHOCYTES % (AUTO) 12.8 % (13-45); MEAN CORPUSCULAR HEMOGLOBIN 30.4 pg (27.0-33.4); MEAN CORPUSCULAR HGB CONC 34.2 g/dL (32.0-36.0); MEAN CORPUSCULAR VOLUME 89 fl (80-97); MONOCYTES % (AUTO) 7.9 % (3-13); PLATELET COUNT 307 10^3/uL (150-450); RED BLOOD COUNT 3.97 10^6/uL (4.35-5.55); RED CELL DISTRIBUTION WIDTH 14.9 % (11.5-14.0); SEGMENTED NEUTROPHILS % (AUTO) 78.2 % (42-78); TOTAL CELLS COUNTED % (AUTO) 100 %; WHITE BLOOD COUNT 9.4 10^3/uL (4.0-10.5)
--- NOTE | 2019-03-18 00:53 | ER Document Report ---
ED GI/ - General Chief Complaint: Abdominal Pain Stated Complaint: POST OPERATION PAIN Time Seen by Provider: 03/18/19 00:53 Primary Care Provider: LAURA STONE MD [Primary Care Provider] - Follow up as needed Mode of Arrival: Ambulatory Information source: Patient Notes: HISTORY OF PRESENT ILLNESS: Patient is a 48-year-old male with a past medical history of diverticulitis status post resection with colostomy status post takedown 2 days ago who presents with abdominal pain. Patient reports that he had his first 2 bowel movements today after his surgery from 2 days ago, they were loose and like diarrhea but with more consistency, denies seeing blood. He reports he has been passing gas per normal since his surgery. He had sudden onset right-sided abdominal pain but also indigestion like he was "belching a lot and had too much gas on the inside." Currently, the patient reports no symptoms and feels to be his normal self. Location: Right sided abdomen Onset: Prior to arrival Alleviation: None Provocation: Movement Quality: Cramping Radiation: None Severity: Moderate at worst, currently mild Timing: Resolved History of abdominal surgery: Yes, recent colostomy takedown 2 days ago Associated symptoms: None Last bowel movement: Today, diarrhea REVIEW OF SYSTEMS: CONSTITUTIONAL : Denies fever or chills, no sweats. Denies recent illness. EENT: Denies eye, ear, throat, or mouth pain or symptoms. Denies nasal or sinus congestion. CARDIOVASCULAR: Denies chest pain. Denies swelling of the legs. RESPIRATORY: Denies cough, cold, or chest congestion. Denies shortness of breath or difficulty breathing. Denies wheezing. GASTROINTESTINAL: Positive for abdominal pain. Positive for diarrhea. Denies nausea or vomiting. Denies constipation. GENITOURINARY: Denies difficulty urinating, painful urination, burning, frequency, or blood in urine. FEMALE GENITOURINARY: Denies vaginal bleeding, abnormal or irregular periods. MUSCULOSKELETAL: Denies neck or back pain or joint pain or swelling. SKIN: Denies rash or skin lesions. HEMATOLOGIC : Denies easy bruising or bleeding. LYMPHATIC: Denies swollen, enlarged glands. NEUROLOGICAL: Denies altered mental status or loss of consciousness. Denies headache. Denies weakness or paralysis or loss of use of either side. Denies problems with gait or speech. Denies sensory or motor loss. PSYCHIATRIC: Denies anxiety or stress or depression. All other systems reviewed and negative. PHYSICAL EXAMINATION: GENERAL: Well-appearing, well-nourished and in no acute distress. HEAD: Atraumatic, normocephalic. No scalp deformity, depression, or crepitance. EYES: Pupils are 3 mm and equal/round/reactive to light, extraocular movements intact, sclera anicteric, conjunctiva are normal. ENT: Nares patent bilaterally, oropharynx. Moist mucous membranes. No tonsil hypertrophy. NECK: Normal range of motion, supple without lymphadenopathy. LUNGS: Breath sounds present, equal, and clear to auscultation bilaterally. No wheezes, rales, or rhonchi. HEART: Regular rate and rhythm without murmurs, rubs, or gallops. 2+ peripheral pulses. Normal capillary refill. ABDOMEN: Soft, nontender, nondistended. Surgical site in the right abdomen is clean/dry/intact with mild tenderness surrounding the area. Normoactive bowel sounds. No guarding, no rebound. No masses appreciated. BACK: Normal contour, no midline tenderness. Rectal exam deferred. GENITAL/PELVIC: Deferred. EXTREMITIES: Normal range of motion, no pitting or edema. No cyanosis. NEUROLOGICAL: No focal neurological deficits. Moves all extremities spontaneously and on command. PSYCH: Normal mood, normal affect. No suicidal thoughts/ideations. No homicidal thoughts/ideations. No hallucinations. SKIN: Warm, dry, normal turgor, no rashes or lesions noted. ASSESSMENT AND PLAN: This patient is a 48-year-old male who presents with nominal pain around his surgical site 2 days after a colostomy takedown. Concern for obstruction versus wound dehiscence versus postoperative complication. 1. Will obtain labs, urine, and CT scan of the abdomen/pelvis. 2. Will consult surgery if indicated. TRAVEL OUTSIDE OF THE [place] IN LAST 30 DAYS: No - HPI Patient complains to provider of: Abdominal pain Onset: Just prior to arrival Timing/Duration: Sudden Quality of pain: Cramping Severity at maximum: Moderate Severity in ED: Mild Pain Level: 1 Context: Other - Recent surgery Location: Other - Right-sided abdomen Sexual history: Active Associated symptoms: Diarrhea Exacerbated by: Denies Relieved by: Denies Similar symptoms previously: Yes Recently seen / treated by doctor: Yes - Related Data Allergies/Adverse Reactions: No Known Allergies Allergy (Verified 09/04/16 08:32) Home Medications: Motrin 800mg. oxy-tylenol 10-325mg Past Medical History - General Information source: Patient - Social History Smoking Status: Never Smoker Chew tobacco use (# tins/day): No Frequency of alcohol use: None Drug Abuse: None Lives with: Family, Friend Family History: Reviewed & Not Pertinent Patient has suicidal ideation: No Patient has homicidal ideation: No - Past Medical History Cardiac Medical History: Reports: Hx Hypertension Pulmonary Medical History: Reports: None EENT Medical History: Reports: None Neurological Medical History: Reports: None Endocrine Medical History: Reports: None Renal/ Medical History: Reports: Hx Kidney Stones. Denies: Hx Peritoneal Dialysis Malignancy Medical History: Reports None GI Medical History: Reports: Hx Diverticulitis, Hx Gastroesophageal Reflux Disease - HX REFLUX, Other - History of colostomy status post takedown. Denies: Hx Crohn's Disease, Hx Hiatal Hernia, Hx Irritable Bowel, Hx Liver Failure, Hx Pancreatitis, Hx Ulcer Musculoskeletal Medical History: Reports None Skin Medical History: Reports None Psychiatric Medical History: Reports: None Denies: Hx Depression Traumatic Medical History: Reports: None Infectious Medical History: Reports: None Past Surgical History: Reports: Hx Appendectomy, Hx Bowel Surgery. Denies: Hx Cholecystectomy, Hx Colostomy, Hx Coronary Artery Bypass Graft, Hx Gastric Bypass Surgery, Hx Herniorrhaphy, Hx Pacemaker, Hx Tonsillectomy - Immunizations Immunizations up to date: Yes Hx Diphtheria, Pertussis, Tetanus Vaccination: Yes Review of Systems - Review of Systems Constitutional: No symptoms reported EENT: No symptoms reported Cardiovascular: No symptoms reported Respiratory: No symptoms reported Gastrointestinal: See HPI, Abdominal pain, Diarrhea Genitourinary: No symptoms reported Male Genitourinary: No symptoms reported Musculoskeletal: No symptoms reported Skin: No symptoms reported Hematologic/Lymphatic: No symptoms reported Neurological/Psychological: No symptoms reported -: Yes All other systems reviewed and negative Physical Exam - Vital signs Vitals: Temp Pulse Resp BP Pulse Ox 98.0 F 84 18 130/83 H 100 03/18/19 00:01 03/18/19 00:01 03/18/19 00:01 03/18/19 00:01 03/18/19 00:01 Interpretation: Normal Course - Re-evaluation Re-evalutation: 03/18/19 05:26 Patient has been seen and evaluated by Dr. Valencia with surgery. He feels the CT is not consistent with a small bowel obstruction given the patient's recent surgery and ability to both pass gas and have bowel movements. He feels the patient is safe to be discharged and will follow-up in his clinic as scheduled. Labs are otherwise unremarkable. Will discharge the patient home with strict return precautions and follow-up with surgery. All results were explained to and discussed with the patient, and all questions addressed and answered. The patient voices both understanding and agreeing with the plan. - Vital Signs Vital signs: Temp Pulse Resp BP Pulse Ox 98.0 F 84 16 115/68 97 03/18/19 00:01 03/18/19 00:01 03/18/19 04:31 03/18/19 04:31 03/18/19 04:31 - Laboratory Result Diagrams: 03/18/19 00:30 03/18/19 00:30 Laboratory results interpreted by me: 03/18/19 03/18/19 03/18/19 00:30 00:30 01:11 RBC 3.97 L Hgb 12.1 L Hct 35.2 L RDW 14.9 H Lymph % (Auto) 12.8 L Seg Neutrophils % 78.2 H Creatinine 1.66 H Est GFR ( Amer) 53 L Est GFR (MDRD) Non-Af 44 L AST 15 L Urine Ketones TRACE H - Diagnostic Test Radiology reviewed: Image reviewed, Reports reviewed - Consults Dr. Valencia Time consulted: 05:17 - Will come and evaluate the patient Consulted provider: will come to ER Discharge - Discharge Clinical Impression: Abdominal pain Qualifiers: Abdominal location: unspecified location Qualified Code(s): R10.9 - Unspecified abdominal pain Condition: Good Disposition: HOME, SELF-CARE Instructions: Abdominal Pain ([facility]) Additional Instructions: You have been evaluated in the Emergency Department for abdominal pain 2 days after your colostomy takedown surgery. While here, you had blood work and a CAT scan that did not show a blockage. You were seen by your surgeon, Dr. Valencia, who agrees you are safe to be discharged home. Please follow-up with your surgeon as instructed. Return to the Emergency Department if you experience worsening pain, the inability to have a bowel movement, uncontrollable vomiting, high fevers, swelling of the abdomen, or any other concerning symptoms. Referrals: LAURA STONE MD [Primary Care Provider] - Follow up as needed OLIVER VALENCIA MD [ACTIVE STAFF] - Follow up as needed Print Language: Mauritian
[2019-03-18] MEDS ORDERED: MORPHINE SULFATE 10 MG/ML INJ IV ONE (00:54)
[2019-03-18 01:06] LABS: ALBUMIN 3.8 g/dL (3.5-5.0); ALKALINE PHOSPHATASE 49 U/L (38-126); ANION GAP 9 (5-19); ASPARTATE AMINO TRANSFERASE 15 U/L (17-59); BILIRUBIN,DIRECT 0.1 mg/dL (0.0-0.4); BILIRUBIN,TOTAL 0.4 mg/dL (0.2-1.3); BLOOD UREA NITROGEN 16 mg/dL (7-20); CALCIUM 9.6 mg/dL (8.4-10.2); CARBON DIOXIDE 28 mmol/L (22-30); CHLORIDE 103 mmol/L (98-107); GLUCOSE 87 mg/dL (75-110); POTASSIUM 4.1 mmol/L (3.6-5.0); TOTAL PROTEIN 6.8 g/dL (6.3-8.2)
[2019-03-18 01:26] LABS: APPEARANCE,URINE CLEAR; BILIRUBIN,URINE NEGATIVE (NEGATIVE); COLOR,URINE YELLOW; GLUCOSE, URINE NEGATIVE (NEGATIVE); KETONES,URINE TRACE mg/dL (NEGATIVE); LEUKOCYTE ESTERASE,URINE NEGATIVE (NEGATIVE); NITRITE,URINE NEGATIVE (NEGATIVE); PROTEIN,URINE NEGATIVE (NEGATIVE); URINE SPECIFIC GRAVITY 1.019; UROBILINOGEN,URINE NEGATIVE mg/dL (<2.0)
--- NOTE | 2019-03-18 05:01 | RADIOLOGY REPORT (SQ) ---
EXAM DESCRIPTION: CT ABDOMEN PELVIS WITH IV CONTRAST COMPLETED DATE/TME: 03/18/2019 00:00 CLINICAL HISTORY: Abdominal pain. Colostomy bag reversal on Friday. COMPARISON: 12/12/2018 TECHNIQUE: CT of the abdomen and pelvis performed following IV administration of 88.1 mL of Omnipaque 350. FINDINGS: Lung Bases: Minimal bibasilar dependent atelectasis. Bones: No destructive bone lesions identified. Abdomen: Liver: The liver has normal size and density. No intrahepatic mass or biliary dilatation. Gallbladder: No calcified gallstones. Spleen, Pancreas, and Adrenal Glands: The spleen, pancreas, and adrenal glands are unremarkable. Kidneys: The kidneys have normal size without evidence of solid mass or hydronephrosis. Bosniak class I left renal cyst. Vasculature: The aorta and IVC have normal caliber and position. The portal vein is patent. The proximal visceral and renal arteries are patent. Stomach: The stomach and duodenum have normal course. Other: No free intraperitoneal air. Cutaneous horace and air in the right lateral anterior abdominal wall. Small amount of free fluid. Pelvis: Bladder: Urinary bladder is unremarkable. Bowel: Postoperative change of the colon and small bowel. Dilated loops of small bowel with transition to decompressed loops of small bowel distally. Small bowel wall thickening and air-fluid levels. Transition is near the surgical anastomosis. Appendix: Normal appendix. Pelvis: Prostate is not enlarged. IMPRESSION: 1. Findings compatible with small bowel obstruction with transition to decompressed loops of small bowel at the enteroenteric anastomosis. Postoperative ileus is considered less likely given bowel wall thickening and decompressed distal loops of small bowel. This exam was performed according to our departmental dose-optimization program, which includes automated exposure control, adjustment of the mA and/or kV according to patient size and/or use of iterative reconstruction technique.
--- NOTE | 2019-03-18 05:27 | Progress Note ---
Provider Note Provider Note: Called to see patient regarding right lower quadrant abdominal pain (at his surgical site). The patient is passing gas and having bowel movements. A CT scan was performed. I have reviewed the images. His CT scan is completely normal, considering his recent surgery 48 hours ago. There is air and stool in the colon. He has no sign of obstruction. He is passing flatus, having bowel movements, and his abdomen is soft and nondistended. The patient is requesting to be discharged home. I believe this is appropriate. Follow-up in my office next week.
[2019-03-18 06:05] VITALS: BP 115/77
== END 2019-03-18 06:16 | disposition home or self-care (01) ==
LOC: ER 23:54
DX: R10.31 Right lower quadrant pain (principal); R19.7 Diarrhea, unspecified; I10 Essential (primary) hypertension; Z98.890 Other specified postprocedural states; Z90.49 Acquired absence of other specified parts of digestive tract
CPT/HCPCS: 99284; 96374; 36415; 83690; 85025; 80053; 81001; 74177; S0119; J2270

== ENCOUNTER 2019-10-12 21:27 | Emergency (ER) | payer SELFPAY ==
[2019-10-12 23:28] LABS: APPEARANCE,URINE CLEAR; BILIRUBIN,URINE NEGATIVE (NEGATIVE); COLOR,URINE YELLOW; GLUCOSE, URINE NEGATIVE (NEGATIVE); KETONES,URINE NEGATIVE (NEGATIVE); LEUKOCYTE ESTERASE,URINE NEGATIVE (NEGATIVE); NITRITE,URINE NEGATIVE (NEGATIVE); PROTEIN,URINE NEGATIVE (NEGATIVE); UROBILINOGEN,URINE NEGATIVE mg/dL (<2.0)
[2019-10-12 23:30] LABS: ABSOLUTE LYMPHOCYTES (AUTO) 1.6 10^3/uL (0.5-4.7); ABSOLUTE MONOCYTES (AUTO) 0.6 10^3/uL (0.1-1.4); ABSOLUTE NEUT (AUTO) 3.7 10^3/uL (1.7-8.2); BASOPHILS % (AUTO) 0.7 % (0-2); EOSINOPHILS % (AUTO) 0.7 % (0-6); HEMATOCRIT 44.6 % (37.9-51.0); HEMOGLOBIN 15.2 g/dL (13.5-17.0); LYMPHOCYTES % (AUTO) 26.5 % (13-45); MEAN CORPUSCULAR HEMOGLOBIN 30.8 pg (27.0-33.4); MEAN CORPUSCULAR HGB CONC 34.1 g/dL (32.0-36.0); MEAN CORPUSCULAR VOLUME 90 fl (80-97); MONOCYTES % (AUTO) 10.3 % (3-13); PLATELET COUNT 269 10^3/uL (150-450); RED BLOOD COUNT 4.94 10^6/uL (4.35-5.55); RED CELL DISTRIBUTION WIDTH 14.5 % (11.5-14.0); SEGMENTED NEUTROPHILS % (AUTO) 61.8 % (42-78); TOTAL CELLS COUNTED % (AUTO) 100 %
[2019-10-12 23:56] LABS: ALBUMIN 4.3 g/dL (3.5-5.0); ALKALINE PHOSPHATASE 55 U/L (38-126); ANION GAP 7 (5-19); ASPARTATE AMINO TRANSFERASE 20 U/L (17-59); BILIRUBIN,TOTAL 0.3 mg/dL (0.2-1.3); BLOOD UREA NITROGEN 16 mg/dL (7-20); CALCIUM 9.7 mg/dL (8.4-10.2); CARBON DIOXIDE 28 mmol/L (22-30); CHLORIDE 103 mmol/L (98-107); GLUCOSE 90 mg/dL (75-110); POTASSIUM 4.9 mmol/L (3.6-5.0); TOTAL PROTEIN 7.6 g/dL (6.3-8.2)
--- NOTE | 2019-10-13 03:13 | ER Document Report ---
ED General - General Chief Complaint: Abdominal Pain Stated Complaint: NAUSEA,ABDOMINAL PAIN,CRAMPING Time Seen by Provider: 10/13/19 02:44 Primary Care Provider: LAURA STONE MD [Primary Care Provider] - Follow up as needed Mode of Arrival: Ambulatory Information source: Patient TRAVEL OUTSIDE OF THE [place] IN LAST 30 DAYS: No - HPI Onset: Other - over the last 2 weeks Onset/Duration: Gradual Quality of pain: Cramping, Fullness Severity: Moderate Pain Level: 2 Associated symptoms: Other - patient can smell stool once in a while Exacerbated by: Other - palpation of his stomach Relieved by: Denies Similar symptoms previously: No Recently seen / treated by doctor: No Notes: 49 year old male with a history of Sigmoid Diverticulitis complicated by needing intestinal resection here in the ER 2 weeks of burning abdominal pain (left side worse than right) along with a transient sensation of smelling stool. The patient is concerned his previous surgery for diverticulitis is failing. The patient also says he has been having off and on chills and sweats. The patient c alled his Surgeon (Dr. Henao) and his office told him to be evaluated in the ER. - Related Data Allergies/Adverse Reactions: diphenhydramine [From Benadryl] Allergy (Verified 10/12/19 22:22) Home Medications: Pepsid Past Medical History - General Information source: Patient - Social History Smoking Status: Former Smoker Frequency of alcohol use: None Drug Abuse: None Lives with: Family Family History: Reviewed & Not Pertinent Patient has suicidal ideation: No Patient has homicidal ideation: No - Past Medical History Cardiac Medical History: Reports: Hx Hypertension Renal/ Medical History: Reports: Hx Kidney Stones. Denies: Hx Peritoneal Dialysis GI Medical History: Reports: Hx Diverticulitis, Hx Gastroesophageal Reflux Disease - HX REFLUX. Denies: Hx Crohn's Disease, Hx Hiatal Hernia, Hx Irritable Bowel, Hx Liver Failure, Hx Pancreatitis, Hx Ulcer Psychiatric Medical History: Denies: Hx Depression Past Surgical History: Reports: Hx Appendectomy, Hx Bowel Surgery. Denies: Hx Cholecystectomy, Hx Colostomy, Hx Coronary Artery Bypass Graft, Hx Gastric Bypass Surgery, Hx Herniorrhaphy, Hx Pacemaker, Hx Tonsillectomy - Immunizations Immunizations up to date: Yes Hx Diphtheria, Pertussis, Tetanus Vaccination: Yes Review of Systems - Review of Systems Constitutional: No symptoms reported EENT: No symptoms reported Cardiovascular: No symptoms reported Respiratory: No symptoms reported Gastrointestinal: Abdominal pain Genitourinary: No symptoms reported Male Genitourinary: No symptoms reported Musculoskeletal: No symptoms reported Skin: No symptoms reported Hematologic/Lymphatic: No symptoms reported Neurological/Psychological: No symptoms reported -: Yes All other systems reviewed and negative Physical Exam - Vital signs Vitals: Temp Pulse Resp BP Pulse Ox 98.4 F 60 18 133/83 H 98 10/12/19 21:33 10/12/19 21:33 10/12/19 21:33 10/12/19 21:33 10/12/19 21:33 - Notes Notes: GENERAL: Well-appearing, well-nourished and in no acute distress. HEAD: Atraumatic, normocephalic. EYES: Pupils equal round and reactive to light, extraocular movements intact, sclera anicteric, conjunctiva are normal. ENT: External ears normal, nares patent, oropharynx clear without exudates. Moist mucous membranes. NECK: Normal range of motion, supple without lymphadenopathy or JVD. LUNGS: Breath sounds clear to auscultation bilaterally and equal. No wheezes rales or rhonchi. HEART: Regular rate and rhythm without murmurs, rubs or gallops. ABDOMEN: Soft, mild lower abdominal pain, normoactive bowel sounds. No guarding, no rebound. No masses appreciated. EXTREMITIES: Normal range of motion, no pitting or edema. No clubbing or cyanosis. NEUROLOGICAL: Cranial nerves II through XII grossly intact. Normal speech, normal gait. PSYCH: Normal mood, normal affect. SKIN: Warm, Dry, normal turgor, no rashes or lesions noted. Course - Re-evaluation Re-evalutation: 10/13/19 03:39 The patient is here for lower abdominal pains for the last 2 weeks which seems to be worsening. The patient says he has been passing stool and gas but at times he will just smell feces when he has not gone to the bathroom. Labs unremar kable. Plan is for CT abd/pelvis with IV and Oral Contrast for further evaluation. 10/13/19 05:[address] shows no acute process except for possible fatty liver. There is no sign of an SBO or fistula. Patient told to follow up with his PCP and Surgeon (Dr. Valencia). - Vital Signs Vital signs: Temp Pulse Resp BP Pulse Ox 97.8 F 47 L 15 144/90 H 100 10/13/19 03:56 10/13/19 03:56 10/13/19 03:56 10/13/19 03:56 10/13/19 03:56 - Laboratory Result Diagrams: 10/12/19 22:40 10/12/19 22:40 Laboratory results interpreted by me: 10/12/19 10/12/19 22:40 22:40 RDW 14.5 H Creatinine 1.46 H Est GFR (MDRD) Non-Af 51 L Discharge - Discharge Clinical Impression: Abdominal pain Qualifiers: Abdominal location: generalized Qualified Code(s): R10.84 - Generalized abdominal pain Condition: Stable Disposition: HOME, SELF-CARE Instructions: Abdominal Pain ([facility]) Additional Instructions: Follow up with your Surgeon. Tell your Surgeon you were evaluated in the ER and you had blood work and a CT scan with Oral and IV Contrast. Your CT scan a mild fatty liver but otherwise no acute process. You have no sign of a Surgical Complication imaging today. Referrals: LAURA STONE MD [Primary Care Provider] - Follow up as needed
--- NOTE | 2019-10-13 05:08 | RADIOLOGY REPORT (SQ) ---
EXAM: CT abdomen and pelvis with IV contrast CLINICAL DATA: 49-year-old male with prior ileostomy. Rule out small bowel obstruction and fistula formation TECHNICAL DATA: Axial CT imaging of the abdomen and pelvis was performed following the administration of intravenous contrast.. Sagittal and coronal reconstructed images were then performed. The CT study is performed according to ALARA (as low as reasonably achievable) or ALARA/IMAGE GENTLY, with automatic adjustment of mA and/or kV according to patient size. Performed on: 10/13/2019 at 4:34 AM. Comparison: Prior CT abdomen and pelvis performed on 03/18/2019 FINDINGS: Lung bases: The lung bases are clear. Liver:The liver is normal in size and configuration. No focal hepatic abnormalities are identified. There is decreased attenuation of the liver commonly due to fatty infiltration. Spleen:The spleen is normal is size, configuration and attenuation. Gallbladder and bile duct: The gallbladder is well distended and unremarkable. There is no biliary ductal dilatation. Pancreas: The pancreas is grossly normal in size and configuration. Adrenal Glands:The adrenal glands are normal in size and configuration. Kidneys:The kidneys are normal in size and configuration. There is no evidence of hydronephrosis. There is no evidence of nephrolithiasis. There is a tiny left renal cortical cyst. Stomach:The stomach is grossly normal. There is no definite hiatal hernia. Bowel:The bowel gas pattern is non specific and non obstructive. There is no evidence of a small bowel obstruction. No obvious fistula is identified. Appendix: The appendix is normal. Free air:There is no evidence of free air. Free fluid: There is no evidence of free fluid. Vasculature: The aorta is normal in caliber and contour. The inferior vena cava is grossly unremarkable. Lymphadenopathy: No pathologic lymphadenopathy is identified. Bladder: The bladder is well distended and smooth in contour. Reproductive: The prostate gland is grossly within normal limits. Bones: No acute osseous abnormalities are identified. There is degenerative disc disease at L5-S1. Soft tissues: There is minimal infiltration of the subcutaneous fat along the lower anterior right hemiabdomen likely reflecting postsurgical scarring. There is no evidence of subcutaneous emphysema or subcutaneous contrast to suggest a enterocutaneous fistula. IMPRESSION: 1. No evidence of acute intra-abdominal or intrapelvic pathology. There is no evidence of a small bowel obstruction or obvious fistula formation. No definite enterocutaneous fistula is identified. 2. Decreased attenuation of the liver commonly due to fatty infiltration. 3. Postsurgical scarring suspected along the lower anterior right hemiabdomen.
[2019-10-13 05:47] VITALS: BP 130/87
== END 2019-10-13 05:45 | disposition home or self-care (01) ==
LOC: ER 21:27
DX: R10.84 Generalized abdominal pain (principal); R11.0 Nausea; Z88.8 Allergy status to other drugs, medicaments and biological substances; Z87.891 Personal history of nicotine dependence; I10 Essential (primary) hypertension
CPT/HCPCS: 36415; 74177; 80053; 81001; 83690; 85025; 99284

== ENCOUNTER 2020-01-06 08:54 | Emergency (ER) | payer SELFPAY ==
[2020-01-06] MEDS ORDERED: DEXAMETHASONE SOD PHOS INJ 10 MG/1 ML VIAL IM ONE (12:35)
--- NOTE | 2020-01-06 12:38 | ER Document Report ---
ED Skin Rash/Insect Bite/Abscs - General Chief Complaint: Skin Problem Stated Complaint: ARM RASH/SWELLING Time Seen by Provider: 01/06/20 12:26 Primary Care Provider: LAURA STONE MD [Primary Care Provider] - Follow up as needed Notes: Patient is a 49-year-old male comes emergency room complaining of contact dermatitis of either poison susan or poison oak. He states that last Friday he was working in his yard around the fence line pulling up weeds and then the next day he gathered up in his arm took him to the road that when he started getting the reaction. The right and left arms both affected although over the last 48 hours the left arm is become more swollen somewhat reddened and more erythematous. Patient states he went to the pharmacy and is tried calamine lotion and Benadryl without any real benefits. Patient has a significant history for colon resection with coloproctostomy with a reversal. TRAVEL OUTSIDE OF THE [place] IN LAST 30 DAYS: No - HPI Patient complains to provider of: Skin rash/lesion, Tender/swollen area Onset: Other - 4 days Onset/Duration: Gradual Quality of pain: Achy, Other - Itchy Severity: Moderate Pain Level: 3 Skin Character: Erythema, Lesion, Rash, Tenderness, Thickening, Warm Skin Temperature: Warm Quality of rash: Itchy Identify cause: Yes - Poison susan/poison oak Other exposure: Poison susan, Poison oak Exacerbated by: Other - Heat Relieved by: Denies Similar symptoms previously: No Recently seen / treated by doctor: No - Related Data Allergies/Adverse Reactions: diphenhydramine [From Benadryl] Adverse Reaction (Verified 01/06/20 09:48) Past Medical History - General Information source: Patient - Social History Smoking Status: Never Smoker Cigarette use (# per day): No Chew tobacco use (# tins/day): No Smoking Education Provided: No Frequency of alcohol use: None Drug Abuse: None Family History: Reviewed & Not Pertinent - Past Medical History Cardiac Medical History: Reports: Hx Hypertension Renal/ Medical History: Reports: Hx Kidney Stones. Denies: Hx Peritoneal D ialysis GI Medical History: Reports: Hx Diverticulitis, Hx Gastroesophageal Reflux Disease - HX REFLUX. Denies: Hx Crohn's Disease, Hx Hiatal Hernia, Hx Irritable Bowel, Hx Liver Failure, Hx Pancreatitis, Hx Ulcer Psychiatric Medical History: Denies: Hx Depression Past Surgical History: Reports: Hx Appendectomy, Hx Bowel Surgery. Denies: Hx Cholecystectomy, Hx Colostomy, Hx Coronary Artery Bypass Graft, Hx Gastric Bypass Surgery, Hx Herniorrhaphy, Hx Pacemaker, Hx Tonsillectomy - Immunizations Immunizations up to date: Yes Hx Diphtheria, Pertussis, Tetanus Vaccination: Yes Review of Systems - Review of Systems Constitutional: No symptoms reported EENT: No symptoms reported Cardiovascular: No symptoms reported Respiratory: No symptoms reported Gastrointestinal: No symptoms reported Genitourinary: No symptoms reported Male Genitourinary: No symptoms reported Musculoskeletal: No symptoms reported Skin: Rash Hematologic/Lymphatic: No symptoms reported Neurological/Psychological: No symptoms reported -: Yes All other systems reviewed and negative Physical Exam - Vital signs Vitals: Temp Pulse Resp BP Pulse Ox 97.7 F 51 L 16 121/88 H 100 01/06/20 09:00 01/06/20 09:00 01/06/20 09:00 01/06/20 09:00 01/06/20 09:00 Interpretation: Hypertensive, Bradycardic - Notes Notes: PHYSICAL EXAMINATION: GENERAL: Patient is a well-nourished well-developed 49-year-old male no apparent distress on examination today. He appears uncomfortable. HEAD: Atraumatic, normocephalic. EYES: Pupils equal round and reactive to light, extraocular movements intact, s clera anicteric, conjunctiva are normal. ENT: Nares patent, oropharynx clear without exudates. Moist mucous membranes. NECK: Normal range of motion, supple without lymphadenopathy LUNGS: Breath sounds clear to auscultation bilaterally and equal. No wheezes rales or rhonchi. HEART: Bradycardic rate and rhythm without murmurs Musculoskeletal: Examination patient's area concern is bilateral upper extremities. The left arm appears worse than the right with moderate amount of swelling and thickening of the skin with areas of confluent patches of maculopapular areas that are very red and erythematous. There are areas of slight excoriations noted. The rest of the skin is moderately erythematous all the way up to the elbows from the wrist up. Examination goes along with a contact dermatitis followed by a cellulitis of the skin secondary to excoriating. NEUROLOGICAL:t. Normal speech, normal gait. Normal sensory, motor exams PSYCH: Normal mood, normal affect. SKIN: See musculoskeletal above for full details Course - Vital Signs Vital signs: Temp Pulse Resp BP Pulse Ox 97.8 F 52 L 16 115/97 H 100 01/06/20 12:51 01/06/20 12:50 01/06/20 12:50 01/06/20 12:50 01/06/20 12:50 Discharge - Discharge Clinical Impression: Contact dermatitis Qualifiers: Contact dermatitis type: unspecified Contact dermatitis trigger: unspecified trigger Qualified Code(s): L25.9 - Unspecified contact dermatitis, unspecified cause Condition: Stable Disposition: HOME, SELF-CARE Instructions: Contact Dermatitis ([facility]), Poison Susan ([facility]) Additional Instructions: Home and medications as prescribed. You can continue to use the calamine lotion if it helps. Monitor your arms very closely after starting the antibiotics and the steroids if for any reason your arm gets bigger or you are not really responding or you spike a fever return to ER for reevaluation. Prescriptions: Sulfamethoxazole/Trimethoprim [Bactrim Ds Tablet] 1 each PO BID #20 tablet Cephalexin Monohydrate [Keflex 500 mg Capsule] 500 mg PO Q6H 5 Days #28 capsule Methylprednisolone [Medrol Dosepack (4 mg/Tab) 21 Tab/Dosepak] 4 mg PO ASDIR PRN #21 tab.ds.[id number] PRN Reason: Hydroxyzine Pamoate [Vistaril 50 mg Capsule] 50 mg PO TID PRN #21 capsule PRN Reason: Referrals: LAURA STONE MD [Primary Care Provider] - Follow up as needed
[2020-01-06] MEDS ORDERED: DEXAMETHASONE SOD PHOSPHATE INJ 4 MG/1 ML VIAL IM ONE (12:39)
[2020-01-06 12:51] VITALS: BP 115/97
== END 2020-01-06 12:54 | disposition home or self-care (01) ==
LOC: ER 08:54
DX: L25.9 Unspecified contact dermatitis, unspecified cause (principal); R21 Rash and other nonspecific skin eruption; M79.89 Other specified soft tissue disorders; I10 Essential (primary) hypertension
CPT/HCPCS: 99284; 96372; J1100